=== PATIENT | male | born 1955 | race Caucasian/White ===

== ENCOUNTER 2023-10-27 03:43 | Inpatient (IN) | payer OTHER, SELFPAY ==
[2023-10-26 23:10] VITALS: BP 163/72
[2023-10-26 23:42] LABS: % Basophils 0.4 % (0-2); % Eosinophils 1.4 % (0-6); % Immature Granulocytes 0.3 % (0-0.5); % Lymphocytes 12.1 % (20.5-51.1); % Monocytes 11.8 % (1.7-9.3); Absolute Eosinophils 0.1 10^3/uL (0-0.7); Absolute Lymphocytes 0.8 10^3/uL (1.2-3.4); Absolute Monocytes 0.8 10^3/uL (0.1-0.6); Absolute Neutrophils 5.1 10^3/uL (1.4-6.5); Hematocrit 34.7 % (39.0-52.0); Hemoglobin 12.1 g/dL (13.0-18.0); Mean Corp Hgb Conc. 34.9 g/dL (33.0-37.0); Mean Corpuscular Hgb 28.9 pg (27.0-31.0); Mean Platelet Volume 12.5 fL (7.4-10.4); Nucleated Red Blood Cells % 0 % (-); Platelet Count 109 10^3/uL (130-400); Red Blood Cell Count 4.18 10^6/uL (4.70-6.10); Red Cell Dist. Width 15.2 % (11.5-14.5); White Blood Cell Count 6.9 10^3/uL (4.8-10.8)
[2023-10-26 23:57] LABS: ALT (SGPT) 37 U/L (0-50); AST (SGOT) 47 U/L (17-59); Albumin 3.1 g/dl (3.5-5.0); Alkaline Phosphatase 64 U/L (38-126); Blood Urea Nitrogen 16 mg/dl (9-20); Calcium 8.2 mg/dl (8.4-10.2); Carbon Dioxide 22 mmol/L (22-30); Chloride 102 mmol/L (98-107); Estimated Creatinine Clearance 119 ml/min; Glucose 249 mg/dl (70-99); Potassium 3.9 mmol/L (3.5-5.1); Sodium 129 mmol/L (135-145); Total Bilirubin 1.3 mg/dl (0.2-1.3); Total Protein 6.7 g/dl (6.3-8.2); eGFR > 60.00
[2023-10-27] VITALS (17 sets, daily range): BP systolic 75–149; BP diastolic 62–81; BMI 24.7
[2023-10-27 01:03] LABS: Urine Albumin Negative (Neg - Trace); Urine Bilirubin Negative (Negative); Urine Character Clear (Clear); Urine Color Yellow; Urine Glucose 3+ (Negative); Urine Ketone Negative (Negative); Urine Leukocyte Negative (Negative); Urine Nitrite Negative (Negative); Urine Occult Blood Negative (Negative); Urine Specific Gravity 1.015 (<1.030); Urine Urobilinogen 2+ (Neg - 1+)
--- NOTE | 2023-10-27 01:03 | ED.GENMED ---
History of Present Illness
General
Chief Complaint: Abnormal Lab Value
Source: patient and spouse
Time Seen by Provider: 10/26/23 23:50
Travel History
Have you had any contact with someone who has COVID-19?: No
Do you have any symptoms of coronavirus? Fever > 100 degrees, chills, cough, shortness of breath, sore throat, loss of taste or smell, muscle aches, or headache?: No
History of Present Illness
History of Present Illness:
67-year-old male presents emergency room based upon the advice of his braker passenger train. Patient has Mckeon cirrhosis. He has a paracentesis performed about every 2 weeks at [facility] where his epic cadence specialists is. He did have this procedure done
today and he received a phone call that the ascitic fluid had an elevated white blood cell count and that he should go to the closest return. Patient has been experiencing some mild abdominal discomfort which she associated with the need for
paracentesis. No fever. Otherwise has been feeling well. Patient states he removed 4 L of fluid. He did not get albumin because they removed less than 5 L.
Past History
Past History
ED Past Medical History: GERD, HTN, Hypercholesterolemia and Other (Cirrhosis of the liver)
ED Past Surgical History: Orthopedic and Other (Hernia repair)
Social History
Personal:
Living: with family
Employment: Employed
Family History
Family History: Other
Phy Exam
Physical Exam
Physical Exam:
General: Awake, Alert, Oriented X3. No acute distress.
Vitals: unremarkable
Head: Atraumatic
Eyes: Pupils equal, EOMI
Throat: Airway intact, no exudates
Neck: Trachea midline
Lungs: Clear and equal b/l
Heart: Regular rate, no murmurs
Abd: Soft, no significant tenderness to palpation, No pulsatile mass
Neuro: Nonfocal
Skin: Warm, dry, no rash
Extremities: pulses equal b/l, no edema
Course
Orders/Labs/Results
Orders:
Orders
10/26/23 23:22
Electrocardiogram (*1) Urgent
Reason for Study: Other
Other Reason for Exam: Possible Sepsis
Cardiac Monitoring- Treatment ONCE
Urinalysis Reflex To Culture Urgent
Date Specimen was Collected: 10/26/23
Time Specimen was Collected: 23:23
O2 Therapy [RESP] Urgent
Titrate/Wean O2 to maintain O2 sat greater than (%): 93
Special Instructions: TO MAINTAIN CONTINUOUS O2 SATS > OR = 93%
Pulse Ox/cont/shift [RESP] Urgent
Quantity: 1
Special Instructions: CONTINUOUS
10/26/23 23:23
EKG- Treatment ONCE
10/26/23 23:30
Lactic Acid Q4H
Comment: ON ICE, CANCEL 2ND ORDER IF FIRST LACTIC ACID LEVEL <2
10/26/23 23:35
Complete Blood Count/With Diff Urgent
Comprehensive Metabolic Panel Urgent
Blood Culture Q30M
JANIE Source: Blood/Venous
Specimen Description:
Comment: FROM 2 SEPARATE SITES
10/27/23 00:43
Blood Culture Q30M
JANIE Source: Blood/Venous
Specimen Description:
Comment: FROM 2 SEPARATE SITES
10/27/23 00:48
Prothrombin Time Urgent
10/27/23 01:02
CefTRIAXone [Rocephin] 2,000 mg IV NOW STA
10/27/23 03:30
Lactic Acid Q4H
Comment: ON ICE, CANCEL 2ND ORDER IF FIRST LACTIC ACID LEVEL <2
Abnormal Lab Results
10/26/23
23:35
RBC 4.18 L 10^6/uL
(4.70-6.10)
Hgb 12.1 L g/dL
(13.0-18.0)
Hct 34.7 L %
(39.0-52.0)
RDW 15.2 H %
(11.5-14.5)
Plt Count 109 L 10^3/uL
(130-400)
MPV 12.5 H fL
(7.4-10.4)
Absolute Lymphs (auto) 0.8 L 10^3/uL
(1.2-3.4)
Absolute Monos (auto) 0.8 H 10^3/uL
(0.1-0.6)
Lymphocytes % 12.1 L %
(20.5-51.1)
Monocytes % 11.8 H %
(1.7-9.3)
Sodium 129 L mmol/L
(135-145)
Creatinine 0.5 L mg/dL
(0.7-1.3)
Glucose 249 H mg/dl
(70-99)
Calcium 8.2 L mg/dl
(8.4-10.2)
Albumin 3.1 L g/dl
(3.5-5.0)
10/26/23 23:35
10/26/23 23:35
Vital Signs
Initial and Last Documented VS:
Initial Vital Signs
Temp Pulse Resp BP Pulse Ox
98.2 F 82 20 163/72 97
10/26/23 23:10 10/26/23 23:10 10/26/23 23:10 10/26/23 23:10 10/26/23 23:10
Last Documented Vital Signs
Temp Pulse Resp BP Pulse Ox
98.1 F 71 20 128/64 98
10/27/23 01:00 10/27/23 01:00 10/27/23 01:00 10/27/23 01:00 10/27/23 01:00
MDM/Problems Addressed
Differential Diagnosis Includes:
SBP
MDM/Problems Addressed:
Patient sent to the emergency room because of abnormal ascitic fluid results. I was able to see the results on the patient's portal and white count is 826. No chemistry results are available. Gram stain and culture were pending. Patient is
afebrile. His abdominal exam is benign. We will begin treatment for suspected spontaneous bacterial peritonitis with 2 g of Rocephin. I did discuss the patient's presentation with GI on-call.
Chronic conditions affecting care: Other (Cirrhosis)
*Pulse Oximetry
Patient hypoxic: no
*EKG
Interpreted by ED Provider?: Yes
Interpretation: normal
Heart Rate: 67
Rate: normal
Rhythm: sinus
[place]: normal axis
Interval: normal interval
Ischemia: no ischemia
*Supervisor Road Administrator Interpretation
Rate: normal
Interpretation: normal
Rhythm: sinus
*Critical Care Note
Total Time (30-74mins, 75-104mins- exclusive of procedures): Not Applicable
ED Attending Note
-
Portions of this chart may have been created with voice recognition software.� Occasional wrong word or��sound alike� substitutions may have occurred due to the inherent limitations of voice recognition software.
Discharge Plan
Departure
Patient Disposition: Admit
Date of Disposition: 10/27/23
Time of Disposition: 01:04
Admit to: Med/Surg
Presentation/result/management discussed w/ accepting MD/DO: Hospitalist
Condition: Fair
Discharge Problem:
Spontaneous bacterial peritonitis, Cirrhosis of liver
Prescriptions:
No Action
lansoprazole 30 MG capsule,delayed release(DR/EC)
30 mg PO DAILY
furosemide 40 mg tablet
40 mg PO DAILY
atorvastatin 40 mg tablet
40 mg PO QPM
spironolactone 100 mg tablet
150 mg PO DAILY
dapagliflozin propanediol [Farxiga] 10 mg tablet
10 mg PO DAILY
Referrals:
Camille Cheng MD [Family Provider] -
Interventions
Interventions:
*Risk Screen - Suicide Last Done: 10/26/23 23:10
*General Assessment Last Done: 10/26/23 23:10
*Neglect/Abuse Screening Last Done: 10/26/23 23:10
ED- Fall Risk Assessment Last Done: 10/26/23 23:10
*ED COVID-19 Vaccine History Last Done: 10/26/23 23:10
UE-Orbsaq-Iefbpygmbg Assessment Last Done: 10/27/23 00:55
[2023-10-27 01:21] LABS: INR 1.31; PT 16.4 Sec (11.4-14.6)
[2023-10-27] MEDS: ROCEPHIN 2000 MG IV ×2 (01:24→23:31)
[2023-10-27 01:32] LABS: Lactic Acid 1.2 mmol/L (0.7-2.0)
--- NOTE | 2023-10-27 02:35 | HPS.HSE ---
Family Physician
-
Family Physician: Camille Cheng
Chief Complaint
-
abnormal ascites fluid analysis at [facility]
History of Present Illness
8M HX MENDEZ cirrhosis, chronic thrombocytopenia, mild hypoalbuminemia, borderling coagulopathy sent in by GI
Recent paracentesis performed about every 2 weeks at [place] where his dietician is.
Repeat abdominal parcenteiss today and removed 4 L of fluid today. No albumin because removed less than 5 L.
OP GI noted ascitic fluid had an elevated white blood cell count and that he was advised to got to ER.
ROS
Reports some mild abdominal discomfort which she associated with the need for paracentesis.
No fever.
Medical History
Past Medical History
Past Medical History: Reports Other
Additional Past Medical History:
GERD, HTN, Hypercholesterolemia and Other (Cirrhosis of the liver)
Past Surgical History: Reports Other (Hernia repair))
Social History
Tobacco: Non-smoker
Alcohol: None
Personal:
Living: With Family
Family History
Family History: Not pertinent
Allergies / Home Medications
Allergies reflects when Allergies were last updated in [facility].
Home Medications with original date entered in [facility]
Allergy/Medication List:
Allergies
Allergy/AdvReac Type Severity Reaction Status Date / Time
NKA - No Known Allergies Allergy NKA Uncoded 10/26/23 23:19
Home Medications
lansoprazole 30 mg capsule,delayed release 30 mg PO DAILY 11/27/15
atorvastatin 40 mg tablet 40 mg PO QPM 09/09/23
dapagliflozin propanediol 10 mg tablet (Farxiga) 10 mg PO DAILY 09/09/23
furosemide 40 mg tablet 40 mg PO DAILY 09/09/23
spironolactone 100 mg tablet 150 mg PO DAILY 09/09/23
Review of Systems
-
Constitutional: Reports No Symptoms
EENT: Reports No Symptoms
Respiratory: Reports No Symptoms
Cardiac: Reports No Symptoms
Abdomen/GI: Reports See HPI
: Reports No Symptoms
Musculoskeletal: Reports No Symptoms
Skin: Reports No Symptoms
Neurological: Reports No Symptoms
Endocrine: Reports No Symptoms
Hematologic/Lymphatic: Reports No Symptoms
Psych: Reports No Symptoms
Physical Exam
Vital Signs
Vital Signs
Temp Pulse Resp BP Pulse Ox
98.1 F 71 20 128/64 98
10/27/23 01:00 10/27/23 01:00 10/27/23 01:00 10/27/23 01:00 10/27/23 01:00
Physical Exam
General: Other (see below )
Laboratory Results
-
10/26/23 23:35
10/26/23 23:35
Laboratory Results
PT 16.4 Sec (11.4-14.6) H 10/27/23 00:48
INR 1.31 10/27/23 00:48
Lactic Acid Cancelled 10/27/23 00:48
Total Bilirubin 1.3 mg/dl (0.2-1.3) 10/26/23 23:35
AST 47 U/L (17-59) 10/26/23 23:35
ALT 37 U/L (0-50) 10/26/23 23:35
Alkaline Phosphatase 64 U/L (38-126) 10/26/23 23:35
Data Reviewed
-
Lab Data: Labs Reviewed by me
Impression/Plan
-
Reviewed VS: Afebrile and unremarkable VS
PE
Gen: NAD , not toxic looking
HEENT: anicteric
Neck: supple
Lungs: CTA
Cor: RRR S1 S2
Abdomen: Soft, no significant tenderness to palpation,
HEAD CHARRER: AAO3 , No asterix, NFND
MS: no edema
Psych: appropriate
Data
nl WCC
Hgb 12.1
Plt 110 - baseline is 70 - 120s
INR 1.31
Albumin 3.1
Na 129 BG 250 - corrected Na 131
nl TB
nl transaminase
NEG UA
EKG
SINUS RHYTHM WITH PREMATURE ATRIAL COMPLEXES
ST and T WAVE ABNORMALITY, CONSIDER ANTERIOR ISCHEMIA
ABNORMAL ECG
WHEN COMPARED WITH ECG OF 09-SEP-2023 10:14,
NONSPECIFIC T WAVE ABNORMALITY NOW EVIDENT IN ANTERIOR LEADS
QT HAS SHORTENED
ASSESSMENT & PLAN
Hemodynamically stable
Reported elevated WCC in [facility] at [facility] - Ascites fluid analysis is not in [facility]
ER attd was able to see the results on the patient's portal and white count is 826.
No chemistry results are available.
Gram stain and culture were pending
Eval for Spontaneous bacterial peritonitis, Cirrhosis of liver
Afebrile. Abdominal exam is benign.
HX MENDEZ cirrhosis mild synthetic dysfunction, chr thrombocytopenia
- cont all OP Meds: Lasix and Aldactone
- BCx sent
- agree with empiric IV CFTZ 2 gm daily
- obtain records from [facility]
- GI consulted per ER attd
HLD on Stain - cont.
DVT Px: SCD
Code: Full code
IP MS
[2023-10-27 07:53] LABS: Hematocrit 35.6 % (39.0-52.0); Hemoglobin 11.9 g/dL (13.0-18.0); Mean Corp Hgb Conc. 33.4 g/dL (33.0-37.0); Mean Corpuscular Hgb 28.7 pg (27.0-31.0); Mean Corpuscular Volume 85.8 fL (80.0-94.0); Mean Platelet Volume 11.7 fL (7.4-10.4); Platelet Count 102 10^3/uL (130-400); Red Blood Cell Count 4.15 10^6/uL (4.70-6.10); Red Cell Dist. Width 15.2 % (11.5-14.5); White Blood Cell Count 5.1 10^3/uL (4.8-10.8)
[2023-10-27 07:54] LABS: Ammonia 12 umol/L (9-30)
[2023-10-27 08:07] LABS: ALT (SGPT) 36 U/L (0-50); AST (SGOT) 45 U/L (17-59); Alkaline Phosphatase 56 U/L (38-126); Blood Urea Nitrogen 15 mg/dl (9-20); Carbon Dioxide 25 mmol/L (22-30); Chloride 103 mmol/L (98-107); Estimated Creatinine Clearance 119 ml/min; Glucose 142 mg/dl (70-99); Sodium 131 mmol/L (135-145); Total Bilirubin 1.1 mg/dl (0.2-1.3); Total Protein 6.5 g/dl (6.3-8.2); eGFR > 60.00
[2023-10-27] MEDS: ALDACTONE 150 MG PO (08:43)
[2023-10-27] MEDS: FARXIGA 10 MG PO (08:44)
[2023-10-27] MEDS: PROTONIX 40 MG PO (08:44)
[2023-10-27] MEDS: LASIX 40 MG PO (08:44)
--- NOTE | 2023-10-27 09:21 | CON.GI ---
Addendum entered and electronically signed by Cindy Wilson MD 10/27/23 16:48:
I saw and examined the patient.
The LEAD JANITOR's note was reviewed and I agree with the note.
Comment: This is a 67-year-old male with a history of decompensated Mckeon cirrhosis, recurrent ascites getting paracenteses every 2 weeks at [facility] follows up with Dr. Segovia and also Dr. Mosley at [facility], history of esophageal varices status post
banding in the past who was referred to the emergency room after tap yesterday at [facility] and was told that he has SBP and to go to the nearest emergency room. Unfortunately we do not have cell counts available from [place]. He did have a repeat tap
today that did not reveal any evidence of SBP but this was done after he received 2 g of Rocephin in the ER last night. He otherwise feels well no abdominal pain, no fevers or chills. He also has appointment next week for transplant evaluation in
[facility] and endoscopy scheduled with Dr. Segovia in 2 weeks for varices surveillance.
Assessment and plan SBP (first episode)per tap in [facility] yesterday unfortunately we do not have those results available we will try and get those results repeat From today after receiving a dose of antibiotic last night is negative for SBP for
now continue Rocephin 2 g over the weekend we could switch him to p.o. antibiotics and possible DC. Will also give albumin for SBP. And if the counts from [facility] were consistent with SBP will need secondary prophylaxis with daily/weekly
antibiotics after he finishes the course of antibiotic for the SBP.
Addendum entered and electronically signed by Alexa Spivey NP 10/27/23 11:58:
100g IV albumin ordered. Continue diuretics.
Original Note:
Consultation
-
Date/Time Consultation Requested: 10/27/23 @ 03:50
Date/Time Consultation Performed: 10/27/23 @ 09:30
Requesting Provider: STEFANIA Enrique
Performing Provider: STEFANIA Pratt; Dr. Wilson
Reason for Consultation: SBP eval, cirrhosis
Medical History
Chief Complaint / HPI
Chief Complaint: abnormal ascites fluid analysis at [facility]
History of Present Illness:
The patient is a 67-year-old male with a past medical history significant for decompensated Mckeon cirrhosis with recurrent ascites, chronic thrombocytopenia, esophageal varices with banding x 2, hypertension, GERD, hyperlipidemia, type 2 diabetes,
who presented to the emergency room as directed by his repairer screen crusher due to abnormal ascitic fluid analysis. We are being asked to evaluate for further evaluation with hx cirrhosis and +SBP. The pt is known to Dr. Segovia in our office. He has been seen
for routine management of MCKEON cirrhosis and esophageal varices monitoring. He underwent 3x EGD last year for recurrent EV with banding. He is scheduled for a repeat EGD in 2 weeks. He also follows with Dr. Mosley (hepatology at [facility]) for OLT
evaluation, and has his paracentesis with [facility] every 2 weeks. He reports he underwent paracentesis yesterday where they removed 4L which is a standard volume for him. He was later notified that his fluid cell counts were abnormal/concerning for
SBP and was advised to come to the ER. He reports he has had some mild tenderness in his abdomen above his baseline but otherwise was feeling well. He denies any confusion, lethargy, yellowing of the skin/eyes, fevers, chills, chest pain, shortness
of breath, signs of bleeding, or LE edema. He denies prior hx of SBP. He notes he is undergoing work-up and evaluation for a liver transplant next week at [facility]. He is compliant with his diuretics. He denies any alcohol use. He denies any use
of NSAIDs. Routine labs on admission essentially unrevealing aside from a sodium of 129, platelet count 109,000, and albumin 3.1. No leukocytosis or fevers. He was started on 2 g of IV Rocephin and admitted for further evaluation by GI. IR
consult was placed for paracentesis.
Past Medical History
Past Medical History: HTN, Hypercholesterolemia, NIDDM and Other (decompensated MCKEON cirrhosis with recurrent ascites, EV with banding, hiatal hernia, colon polyps)
Past Surgical History: Cholecystectomy, Orthopedic (shoulder surgery) and Other (hernia repair)
Social History
Tobacco: Non-Smoker
Alcohol: None
Drug: None
Family History
Family History: Cancer (colon CA-mother in 80's)
Allergies / Home Medications
Allergy/AdvReac Type Severity Reaction Status Date / Time
NKA - No Known Allergies Allergy NKA Uncoded 10/26/23 23:19
Medication Instructions Recorded
lansoprazole 30 mg capsule,delayed 30 mg PO DAILY 11/27/15
release
atorvastatin 40 mg tablet 40 mg PO QPM 09/09/23
dapagliflozin propanediol 10 mg 10 mg PO DAILY 09/09/23
tablet (Farxiga)
furosemide 40 mg tablet 40 mg PO DAILY 09/09/23
spironolactone 100 mg tablet 150 mg PO DAILY 09/09/23
Review of Systems
-
History Source: Patient
Constitutional: Reports No Symptoms
EENT: Reports No Symptoms
Respiratory: Reports No Symptoms
Cardiac: Reports No Symptoms
Abdomen/GI: Reports Other (Abdominal tenderness)
: Reports No Symptoms
Musculoskeletal: Reports No Symptoms
Skin: Reports No Symptoms
Neurological: Reports No Symptoms
Vital Signs
Temp Pulse Resp BP Pulse Ox
98.0 F 66 18 139/67 98
10/27/23 07:00 10/27/23 07:00 10/27/23 07:00 10/27/23 07:00 10/27/23 07:00
Physical Exam
Exam
General: Well Developed, Well Nourished and No Apparent Distress
HEENT: Normocephalic, Anicteric and Atraumatic
Respiratory: Clear
Cardiac: S1/S2 and Regular Rhythm
GI: Soft, Non Tender, Normal Bowel Sounds, Distended and Other (+ Ascites)
Musculoskeletal: No Edema
Skin: Warm and Dry
Neuro: Awake, Alert, Oriented and Other (No asterixis)
Psych: Calm
Results
WBC 5.1 10^3/uL (4.8-10.8) 10/27/23 07:15
Hgb 11.9 g/dL (13.0-18.0) L 10/27/23 07:15
Hct 35.6 % (39.0-52.0) L 10/27/23 07:15
MCV 85.8 fL (80.0-94.0) 10/27/23 07:15
Plt Count 102 10^3/uL (130-400) L 10/27/23 07:15
Absolute Neuts (auto) 5.1 10^3/uL (1.4-6.5) 10/26/23 23:35
PT 16.4 Sec (11.4-14.6) H 10/27/23 00:48
INR 1.31 10/27/23 00:48
Sodium 131 mmol/L (135-145) L 10/27/23 07:15
Potassium 4.0 mmol/L (3.5-5.1) 10/27/23 07:15
Chloride 103 mmol/L (98-107) 10/27/23 07:15
Carbon Dioxide 25 mmol/L (22-30) 10/27/23 07:15
BUN 15 mg/dl (9-20) 10/27/23 07:15
Creatinine 0.5 mg/dL (0.7-1.3) L 10/27/23 07:15
Calcium 8.0 mg/dl (8.4-10.2) L 10/27/23 07:15
Total Bilirubin 1.1 mg/dl (0.2-1.3) 10/27/23 07:15
AST 45 U/L (17-59) 10/27/23 07:15
ALT 36 U/L (0-50) 10/27/23 07:15
Alkaline Phosphatase 56 U/L (38-126) 10/27/23 07:15
Diagnostic Image Results:
03/31/2023 US abdomen: Cirrhosis with moderate ascites and splenomegaly suggesting portal hypertension
Prior GI Procedures:
EGD: 05/03/2023 Dr. Segovia: Grade I esophageal varices that flatten to insufflation. Scar tissue seen from prior banding. Portal hypertensive gastropathy. Two gastric polyps seen in fundus. Polypectomy deferred as cannot rule out gastric varices. Normal
examined duodenum. No specimens collected.
04/04/2023 Dr. Segovia: Grade III esophageal varices with no bleeding and no stigmata of recent bleeding. Completely eradicated. Banded x3. Portal hypertensive gastropathy. Two gastroesophageal junction erythematous medium sized polyps. Normal examined
duodenum. Biopsied.
03/03/23 Dr. Segovia: Grade II esophageal varices. Completely eradicated. Banded x2. Erythematous mucosa in the gastric body. Biopsied. A few gastric polyps. Resected and retrieved. Bilious gastric fluid. Fluid aspiration performed. Normal examined
duodenum. Biopsied.
Colonoscopy: 10/19/2020 Dr. Stockton: One 5 mm polyp in the cecum, removed with a cold snare. Resected and retrieved. One 7 mm polyp in the descending colon, removed with a cold snare. Resected and retrieved. One 6 mm polyp in the sigmoid colon,
removed with a cold snare. Resected and retrieved.
Assessment / Plan
-
The patient is a 67-year-old male with a past medical history significant for decompensated Mckeon cirrhosis with recurrent ascites, chronic thrombocytopenia, esophageal varices with banding x 2, hypertension, GERD, hyperlipidemia, type 2 diabetes,
who presented to the emergency room as directed by his repairer screen crusher due to abnormal ascitic fluid analysis. We are being asked to evaluate for further evaluation with hx cirrhosis and +SBP. He was sent by Dr. Mosley for abnormal fluid cell counts
consistent with SBP from his outpatient paracentesis yesterday. Currently with no signs of infection such as leukocytosis, fevers, or significant pain. He was started on 2 g of Rocephin. Undergoing outpatient liver transplant workup with
[facility].
Problem list:
-decompensated MCKEON cirrhosis, recurrent ascites follows with Dr. Mosley at [facility] for OLT evaluation, MEDL-Na 10 (6% estimated 90-day mortality rate)
-SBP+
-History of esophageal varices with banding x 2
-chronic hyponatremia
-chronic thrombocytopenia
-normocytic anemia, mild
Other pertinent medical hx:
-HTN
-GERD
-chronic thrombocytopenia
-HLD
-DM2
Recommendations:
-Per outpatient [facility] records ascitic fluid WBC 800's (per ER), sent in for SBP evaluation started on IV rocephin 2g. He does not appear toxic without any apparent HE, signs of bleeding, or fevers.
-Pending repeat paracentesis today
-Continue Rocephin 2g IV daily
-ID consult
-Daily MELD-Na labs; current MELD-Na 10
-Will give albumin 1.5g/kg today for SBP protocol, he will need 1 g/kg on day 3
-Will review with Dr. Segovia regarding his scheduled EGD in 2 weeks whether this need to be postponed or can be done.
-Low-fat low, 2 g sodium restricted diet
-Avoid hepatotoxins
-Will follow
-
-
Thank you for consultation and allowing me to participate in the patient's care. Please call the regional owner operator truck driver GI physician during the after hours with any questions or concerns.
[2023-10-27 11:13] LABS: Body Fluid Albumin < 1.0 g/dl; Body Fluid Amylase < 30 U/L; Body Fluid LDH < 90 U/L; Body Fluid Protein < 2.0 g/dl
[2023-10-27 11:36] LABS: Body Fluid Mononuclear 83.6 %; Body Fluid Polymorphonuclear 16.4 %; Body Fluid WBC 670 /CUMM
[2023-10-27 11:44] LABS: Body Fluid Second Tech EF
--- NOTE | 2023-10-27 14:02 | CM ---
Patient seen bedside, initial assessment completed. Patient reports he resides with his in a two story home with two steps to enter, patient denies DME, VN, or SNF. Patient confirms PCP Dr. Cheng, pharmacy [facility]. Patient denies any
needs at this time, CM will continue to follow for discharge planning needs.
Plan; home no needs anticipated.
--- NOTE | 2023-10-27 14:19 | W.PN.UPDATE ---
Update Note
Progress Note Update
Repeated paracentesis today to evaluate fluid analysis
PMNs were less than 250cells/mm -acknowledging elevated white count
No symptoms of abdominal tenderness
I favor this probably is not SBP, follow-up outpatient fluid analysis, cultures
Await GI recommendations
In the interim continue antibiotics, albumin for ?SBP
[2023-10-27] MEDS: FLEXBUMIN 100 IV ×4 (14:39→22:07)
[2023-10-27] MEDS: HEPARIN 5000 UNITS SC ×2 (17:07→23:30)
[2023-10-27] MEDS: LIPITOR 40 MG PO (17:07)
[2023-10-27] MEDS: STERILE WATER FOR INJECTION 20 ML IV (23:31)
[2023-10-28 06:00] VITALS: BMI 24.0
[2023-10-28 07:00] VITALS: BP 143/66
[2023-10-28 09:01] LABS: INR 1.27; PT 15.7 Sec (11.4-14.6)
[2023-10-28 09:05] LABS: Hematocrit 35.3 % (39.0-52.0); Hemoglobin 11.8 g/dL (13.0-18.0); Mean Corp Hgb Conc. 33.4 g/dL (33.0-37.0); Mean Corpuscular Hgb 29.1 pg (27.0-31.0); Mean Corpuscular Volume 86.9 fL (80.0-94.0); Mean Platelet Volume 12.4 fL (7.4-10.4); Platelet Count 100 10^3/uL (130-400); Red Blood Cell Count 4.06 10^6/uL (4.70-6.10); White Blood Cell Count 4.2 10^3/uL (4.8-10.8)
[2023-10-28 09:28] LABS: ALT (SGPT) 29 U/L (0-50); AST (SGOT) 36 U/L (17-59); Albumin 3.7 g/dl (3.5-5.0); Alkaline Phosphatase 45 U/L (38-126); Blood Urea Nitrogen 16 mg/dl (9-20); Carbon Dioxide 25 mmol/L (22-30); Chloride 98 mmol/L (98-107); Estimated Creatinine Clearance 119 ml/min; Glucose 162 mg/dl (70-99); Magnesium 2.1 mg/dl (1.6-2.3); Potassium 4.1 mmol/L (3.5-5.1); Sodium 134 mmol/L (135-145); Total Bilirubin 1.6 mg/dl (0.2-1.3); Total Protein 6.8 g/dl (6.3-8.2); eGFR > 60.00
[2023-10-28] MEDS: PROTONIX 40 MG PO (09:54)
[2023-10-28] MEDS: ALDACTONE 150 MG PO (09:54)
[2023-10-28] MEDS: FARXIGA 10 MG PO (09:55)
[2023-10-28] MEDS: LASIX 40 MG PO (09:55)
[2023-10-28] MEDS: HEPARIN 5000 UNITS SC (09:55)
--- NOTE | 2023-10-28 10:22 | W.PN.GI.CBS2 ---
Today's Communication / Plan
-
-Clinically doing really well discussed with Dr. Singer will give him his third dose of ceftriaxone today and DC on oral antibiotics with ciprofloxacin and Flagyl for another 5 days and he has an appointment on Monday at [place] with the OLT
team. I told him to discuss his results from the tap at [place] if they were consistent with SBP he will finish the full course of antibiotics and then start secondary prophylaxis with ciprofloxacin 500 mg daily but if the counts were negative and
the cultures were negative he could likely come off of the antibiotics . he will continue therapeutic paracenteses every 2 weeks at [place] as scheduled. okay to DC home later today.
Assessment / Plan
-
The patient is a 67-year-old male with a past medical history significant for decompensated Mckeon cirrhosis with recurrent ascites, chronic thrombocytopenia, esophageal varices with banding x 2, hypertension, GERD, hyperlipidemia, type 2 diabetes,
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 We are being asked to evaluate for further evaluation with hx cirrhosis and +SBP. He was sent by Dr. Mosley for abnormal fluid cell counts
consistent with SBP from his outpatient paracentesis yesterday. Currently with no signs of infection such as leukocytosis, fevers, or significant pain. He was started on 2 g of Rocephin. Undergoing outpatient liver transplant workup with
[facility].
Problem list:
-decompensated MCKEON cirrhosis, recurrent ascites follows with Dr. Mosley at [place] for OLT evaluation, MEDL-Na 10 (6% estimated 90-day mortality rate)
-SBP+
-History of esophageal varices with banding x 2
-chronic hyponatremia
-chronic thrombocytopenia
-normocytic anemia, mild
Other pertinent medical hx:
-HTN
-GERD
-chronic thrombocytopenia
-HLD
-DM2
Recommendations:
-Per outpatient [facility] records ascitic fluid WBC 800's (per ER), sent in for SBP evaluation started on IV rocephin 2g. He does not appear toxic without any apparent HE, signs of bleeding, or fevers.
-repeat paracentesis yesterday neg for SBP
-Continue Rocephin 2g IV daily day 3 today
-current MELD-Na 10
-Got albumin 1.5g/kg yesterday
-Will review with Dr. Segovia regarding his scheduled EGD in 2 weeks whether this need to be postponed or can be done.
-Low-fat low, 2 g sodium restricted diet
-Avoid hepatotoxins
-Clinically doing really well discussed with Dr. Singer will give him his third dose of ceftriaxone today and DC on oral antibiotics with ciprofloxacin and Flagyl for another 5 days and he has an appointment on Monday at [place] with the OLT
team. I told him to discuss his results from the tap at [place] if they were consistent with SBP he will finish the full course of antibiotics and then start secondary prophylaxis with ciprofloxacin 500 mg daily but if the counts were negative and
the cultures were negative he could likely come off of the antibiotics . he will continue therapeutic paracenteses every 2 weeks at [place] as scheduled. okay to DC home later today.
Subjective
Subjective
Date of Service: October 28, 2023
He feels really well no abdominal pain, no fevers or chills, WBC count is normal
Objective
Data Reviewed
Laboratory Data:
Laboratory Results
10/28/23 08:15
10/28/23 08:15
Laboratory Results
PT 15.7 Sec (11.4-14.6) H 10/28/23 08:15
INR 1.27 10/28/23 08:15
Magnesium 2.1 mg/dl (1.6-2.3) 10/28/23 08:15
Total Bilirubin 1.6 mg/dl (0.2-1.3) H 10/28/23 08:15
AST 36 U/L (17-59) 10/28/23 08:15
ALT 29 U/L (0-50) 10/28/23 08:15
Alkaline Phosphatase 45 U/L (38-126) 02/03/24 08:15
Vital Signs and I&O:
Vital Signs
Temp Pulse Resp BP Pulse Ox
98.0 F 66 18 140/65 98
10/28/23 07:00 10/28/23 09:55 10/28/23 07:00 10/28/23 09:55 10/28/23 07:00
I&O
10/27/23 10/28/23 10/29/23
06:59 06:59 06:59
Intake Total 1640 / 1640
Balance 1640 / 1640
Physical Exam
Physical Exam
Cardiology: Normal Sinus Rhythm
Pulmonary: Clear
GI: Soft, Distended (mildly distended), Non Distended and Normal Bowel Sounds
--- NOTE | 2023-10-28 10:53 | PTCARENOTE ---
Assumed care of pt from previous nurse. Pt denies pain. Pt call guy is within reach, pt rings nabil. will cont to monitor.
--- NOTE | 2023-10-28 11:51 | W.PN.HOSP.TC ---
Addendum entered and electronically signed by Axel Singer MD 10/29/23 15:07:
[id number]
Original Note:
Today's Communication/Plan
-
will treat empirically with agreed plan from GI awaiting cultures/full paracentesis analysis from [facility]
-�DC on oral antibiotics with ciprofloxacin and Flagyl for another 5 days
-F/u with OLT team at [place], if results are negative for SBP, can discontinue antibiotics.
� If paracentesis at [facility] is positive for SBP, finish full course of antibiotics and start secondary prophylaxis with ciprofloxacin 500 mg daily
� Continue therapeutic paracentesis every 2 weeks until present
Assessment / Plan
Assessment / Plan
Gen: NAD , not toxic looking
HEENT: anicteric
Neck: supple
Lungs: CTA
Cor: RRR S1 S2
Abdomen: Soft, no significant tenderness to palpation; mild distension
TRANSPORTATION AID: [email or web address] , No asterix
MS: no edema
Psych: appropriate
?SBP
-unclear if he truly has SBP
-received 1 dose abx prior to paracentesis here - doubt would change fluid analysis much
-Regardless, will treat empirically with agreed plan from GI awaiting cultures/full paracentesis analysis from [facility]
-�DC on oral antibiotics with ciprofloxacin and Flagyl for another 5 days
-F/u with OLT team at [facility], if results are negative for SBP, can discontinue antibiotics.
� If paracentesis at [facility] is positive for SBP, finish full course of antibiotics and start secondary prophylaxis with ciprofloxacin 500 mg daily
� Continue therapeutic paracentesis every 2 weeks until present
� Received albumin for SBP on day of admission
HLD on Stain - cont.
More than 30 minutes spent in discharge including
Final examination of the patient
Summarizing hospital stay
Instructions for continuing care to all relevant caregivers
Preparation of discharge records, prescriptions, and referral forms
Total time spent (35 in minutes):
Anticipated Discharge: Today
Subjective/Interval History
-
Date of Service: October 28, 2023
No acute events
Objective Data
-
Labs:
Laboratory Results
10/28/23
08:15
WBC 4.2 L
Hgb 11.8 L
Hct 35.3 L
Plt Count 100 L
PT 15.7 H
INR 1.27
Sodium 134 L
Potassium 4.1
Chloride 98
Carbon Dioxide 25
BUN 16
Creatinine 0.5 L
Glucose 162 H
Calcium 9.0
Total Bilirubin 1.6 H
AST 36
ALT 29
Alkaline Phosphatase 45
Vital Signs:
Vital Signs
Temp Pulse Resp BP Pulse Ox
98.0 F 66 18 140/65 98
10/28/23 07:00 10/28/23 09:55 10/28/23 07:00 10/28/23 09:55 10/28/23 08:15
I&O
10/27/23 10/28/23 10/29/23
06:59 06:59 06:59
Intake Total 1640 / 1640
Balance 1640 / 1640
Review of Systems
-
History Source: Patient
All other systems: Reviewed and negative
Data Reviewed
-
Labs: Labs Reviewed by me
--- NOTE | 2023-10-28 11:55 | W.DS.TRANS ---
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
-
Discharge Instructions:
Discharge Diagnosis/Procedures ?SBP
Diet Low Fat,Regular,2 Gram Sodium
Activity As tolerated
Blood Work Ascitic Fluid With the OLT team; Ascitic fluid
from [facility]
Instructions:
Stand-Alone Forms:
Changes to Home Medications: Yes
Discharge Medications:
DC Medications w/original date entered in [facility]
lansoprazole 30 mg capsule,delayed release 30 mg PO DAILY Gastrointestinal Issue 11/27/15
atorvastatin 40 mg tablet 40 mg PO QPM High Cholesterol 09/09/23
dapagliflozin propanediol 10 mg tablet (Farxiga) 10 mg PO DAILY diabetes 09/09/23
furosemide 40 mg tablet 40 mg PO DAILY Fluid Retention/Swelling 09/09/23
spironolactone 100 mg tablet 150 mg PO DAILY Fluid Retention/Swelling 09/09/23
ciprofloxacin HCl 500 mg tablet 500 mg PO Q12H 5 days #10 tabs 10/28/23
ciprofloxacin HCl 500 mg tablet 500 mg PO Q24H 30 days #30 tabs 10/28/23
metronidazole 500 mg tablet 500 mg PO Q8H 5 days #15 tabs 10/28/23
Home Medication Changes
ciprofloxacin HCl 500 mg tablet 500 mg PO Q12H 5 days #10 tabs 10/28/23
ciprofloxacin HCl 500 mg tablet 500 mg PO Q24H 30 days #30 tabs 10/28/23
metronidazole 500 mg tablet 500 mg PO Q8H 5 days #15 tabs 10/28/23
Pending Results: No
[2023-10-28] MEDS: STERILE WATER FOR INJECTION 20 ML IV (13:54)
[2023-10-28] MEDS: ROCEPHIN 2000 MG IV (13:54)
--- NOTE | 2023-10-28 15:50 | PTCARENOTE ---
Pt dc to home, iv removed. Paperwork reviewed and signed. Pt home with via family car. All belongings with pt.
== END 2023-10-28 15:52 | disposition home or self-care (01) | DRG 372 ==
LOC: 4 WEST ACU 03:43
PROVIDERS: Nurse Practitioner Family; Nurse Practitioner Gerontology; Radiology Vascular & Interventional Radiology; Student in an Organized Health Care Education/Training Program; ADMITTING PHYSICIAN Internal Medicine; ATTENDING PHYSICIAN Internal Medicine; CONSULT PHYSICIAN Internal Medicine Gastroenterology; EMERGENCY PHYSICIAN Emergency Medicine; FAMILY PHYSICIAN Family Medicine
PROC: 0W9G3ZZ Drainage of Peritoneal Cavity, Percutaneous Approach (ICD-10-PCS; 2023-10-27)
DX: K65.2 Spontaneous bacterial peritonitis (principal); E87.1 Hypo-osmolality and hyponatremia; K75.81 Nonalcoholic steatohepatitis (NASH); K74.69 Other cirrhosis of liver; E78.00 Pure hypercholesterolemia, unspecified; I10 Essential (primary) hypertension; E11.9 Type 2 diabetes mellitus without complications; K21.9 Gastro-esophageal reflux disease without esophagitis; Z79.84 Long term (current) use of oral hypoglycemic drugs
CPT/HCPCS: 49083; 80053; 81003; 82042; 82140; 82150; 83605; 83615; 83735; 84157; 85025; 85027; 85610; 87015; 87040; 87070; 87205; 89051; 93005; 96374; 99285; P9047

== ENCOUNTER → 2023-11-09 06:15 | Day surgery (SDC) | payer OTHER, SELFPAY ==
[2023-11-09 07:47] LABS: Glucose - Point of Care 154 mg/dl (70-99)
== END ==
LOC: GI 06:15
PROVIDERS: ATTENDING PHYSICIAN Internal Medicine Gastroenterology; FAMILY PHYSICIAN Family Medicine
DX: K74.60 Unspecified cirrhosis of liver (principal); I85.10 Secondary esophageal varices without bleeding; K76.6 Portal hypertension; K31.89 Other diseases of stomach and duodenum
CPT/HCPCS: 43244; 82962

== ENCOUNTER → 2023-12-12 06:24 | Day surgery (SDC) | payer OTHER, SELFPAY ==
[2023-12-12 11:09] LABS: Glucose - Point of Care 134 mg/dl (70-99)
== END ==
LOC: GI 06:24
PROVIDERS: ATTENDING PHYSICIAN Internal Medicine Gastroenterology
DX: I85.00 Esophageal varices without bleeding (principal); K74.60 Unspecified cirrhosis of liver; K76.6 Portal hypertension; K31.7 Polyp of stomach and duodenum
CPT/HCPCS: 43235; 82962

== ENCOUNTER 2024-01-03 08:59 | Emergency (ER) | payer OTHER, SELFPAY ==
[2024-01-03 09:06] VITALS: BP 154/64
--- NOTE | 2024-01-03 11:09 | ED.GENMED ---
History of Present Illness
General
Chief Complaint: Skin Problem
Source: patient and spouse
Exam Limitations: none
Time Seen by Provider: 01/03/24 10:07
Nursing documentation reviewed up to this point in time: agreed with
Travel History
Have you had any contact with someone who has COVID-19?: No
Do you have any symptoms of coronavirus? Fever > 100 degrees, chills, cough, shortness of breath, sore throat, loss of taste or smell, muscle aches, or headache?: No
History of Present Illness
History of Present Illness:
68-year-old male with Melissa history of hypertension hyperlipidemia cirrhosis that is now well-controlled with GI diabetes with hemoglobin A1c in the sixes presenting to the emergency department today with concerns of an irritation to an umbilical
hernia that is been there for many months but wore an abdominal binder 3 days ago and noticed some irritation to the outer layer of skin from the rubbing and out slightly red at that area denies any systemic symptoms nausea vomiting fevers chills or
additional concerns
Past History
Past History
ED Past Medical History: GERD, HTN, Hypercholesterolemia and Other (Cirrhosis of the liver)
ED Past Surgical History: Orthopedic and Other (Hernia repair)
Social History
Personal:
Living: with family
Employment: Employed
Family History
Family History: Other
Review of Systems
Review of Systems
Allergies reviewed?: Yes
All Other Systems: ROS reviewed and negative except as documented in HPI and ROS
Phy Exam
Physical Exam
Physical Exam:
GENERAL: Alert , in no apparent distress
EYE: pupils equal and reactive
NECK: Supple, no significant adenopathy.
ENT: o/p clr, mmm.
CARDIAC: Regular rate and rhythm .
LUNGS: Clear breath sounds bilaterally, no acute respiratory distress, no wheezes/rales/rhonchi
ABDOMEN: Umbilical hernia that is reducible there is external mild redness without significant tenderness to palpation also a superficial scab no fluctuance or induration soft, without focal tenderness, no r/g, no cvat
NEUROLOGICAL: Alert and oriented, no focal neuro deficits
SKIN: Warm and dry, skin intact.
MUSCULOSKELETAL: No edema, well perfused.
PSYCH: Normal and appropriate interaction.
Course
Orders/Labs/Results
Orders:
Orders
01/03/24 11:08
Cephalexin Monohydrate [Keflex] 500 mg PO NOW STA
Vital Signs
Initial and Last Documented VS:
Initial Vital Signs
Temp Pulse Resp BP Pulse Ox
98.1 F 74 16 154/64 99
01/03/24 09:06 01/03/24 09:06 01/03/24 09:06 01/03/24 09:06 01/03/24 09:06
Last Documented Vital Signs
Temp Pulse Resp BP Pulse Ox
98.1 F 74 16 154/64 99
01/03/24 09:06 01/03/24 09:06 01/03/24 09:06 01/03/24 09:06 01/03/24 09:06
MDM/Problems Addressed
MDM/Problems Addressed:
68-year-old male presenting to the emergency department today with concerns of irritation to the superficial aspect of the umbilical hernia that he has had for many months. He has follow-up for this as an outpatient. He recently wore an abdominal
binder which irritated the outer skin now there is some slight redness and warmth. Here there is no fluctuance or induration the umbilical hernia is not significantly tender and easily reducible. The outer layer and the superficial aspect of this
does have a small scab and some slight redness and irritation potentially consistent with a cellulitis. Patient will be started on antibiotics and given very strict return precautions also advised for close outpatient follow-up.
*Critical Care Note
Total Time (30-74mins, 75-104mins- exclusive of procedures): Not Applicable
ED Attending Note
-
Portions of this chart may have been created with voice recognition software.� Occasional wrong word or��sound alike� substitutions may have occurred due to the inherent limitations of voice recognition software.
Discharge Plan
Departure
Patient Disposition: Home (Routine Discharge)
Date of Disposition: 01/03/24
Time of Disposition: 11:12
Patient with high blood pressure during this ER visit?: No
Condition: Good
Covid-19: Not Applicable
Discharge Problem:
Cellulitis
Instructions: Cellulitis (Skin Infection), Adult (DC)
Prescriptions:
New
cephalexin 500 mg capsule
500 mg PO QID 7 Days Qty: 28 0RF
mupirocin 2 % ointment
1 applic topical BID Qty: 22 0RF
No Action
lansoprazole 30 MG capsule,delayed release(DR/EC)
30 mg PO DAILY
furosemide 40 mg tablet
40 mg PO DAILY
atorvastatin 40 mg tablet
40 mg PO QPM
spironolactone 100 mg tablet
150 mg PO DAILY
dapagliflozin propanediol [Farxiga] 10 mg tablet
10 mg PO DAILY
ciprofloxacin HCl 500 mg tablet
500 mg PO Q12H 5 Days Qty: 10 0RF
metronidazole 500 mg tablet
500 mg PO Q8H 5 Days Qty: 15 0RF
ciprofloxacin HCl 500 mg tablet
500 mg PO Q24H 30 Days Qty: 30 0RF
Rx Instructions:
Start after cipro 500mg q12h dose if [facility] paracentesis positive for SBP.
Referrals:
Camille Cheng MD [Family Provider] -
Activity Restrictions/Additional Instructions:
You came to the emergency department today with concerns of irritation to your umbilical hernia. This is potentially an early infection. Please take Keflex 4 times daily for neck 7 days and use mupirocin overlying the area and keep the area clean
and covered. Please follow closely with your outpatient doctors within 1 week for reassessment. Immediately return to the emergency department for any progression, new or concerning symptoms.
Interventions
Interventions:
*General Assessment Last Done: 01/03/24 11:37
*ED COVID-19 Vaccine History Last Done: 01/03/24 09:06
*Nursing Disposition Last Done: 01/03/24 11:37
ED-Skin Assessment Last Done: 01/03/24 11:37
Discharge Date and Time
Discharge Date/Time: 01/03/24 11:38
Print Language: MALAY
[2024-01-03] MEDS: KEFLEX 500 MG PO (11:32)
== END 2024-01-03 11:38 | disposition home or self-care (01) ==
LOC: EMR 08:59
PROVIDERS: EMERGENCY PHYSICIAN Emergency Medicine; FAMILY PHYSICIAN Family Medicine
DX: L03.311 Cellulitis of abdominal wall (principal); I10 Essential (primary) hypertension; E78.00 Pure hypercholesterolemia, unspecified; E11.9 Type 2 diabetes mellitus without complications
CPT/HCPCS: 99283

== ENCOUNTER 2024-01-17 02:52 | Inpatient (IN) | payer OTHER, MEDICARE, SELFPAY ==
[2024-01-16 21:56] VITALS: BP 171/7
[2024-01-17] VITALS (20 sets, daily range): BP systolic 114–150; BP diastolic 53–102; BMI 26.6
[2024-01-17 00:19] LABS: % Basophils 0.5 % (0-2); % Eosinophils 2.5 % (0-6); % Immature Granulocytes 0.2 % (0-0.5); % Lymphocytes 17.1 % (20.5-51.1); % Monocytes 13.2 % (1.7-9.3); % Neutrophils 66.5 % (42.2-75.2); Absolute Eosinophils 0.1 10^3/uL (0-0.7); Absolute Lymphocytes 0.8 10^3/uL (1.2-3.4); Absolute Monocytes 0.6 10^3/uL (0.1-0.6); Absolute Neutrophils 2.9 10^3/uL (1.4-6.5); Hematocrit 31.8 % (39.0-52.0); Hemoglobin 10.9 g/dL (13.0-18.0); Mean Corp Hgb Conc. 34.3 g/dL (33.0-37.0); Mean Corpuscular Hgb 27.9 pg (27.0-31.0); Mean Corpuscular Volume 81.5 fL (80.0-94.0); Nucleated Red Blood Cells % 0 % (-); Red Cell Dist. Width 15.7 % (11.5-14.5); White Blood Cell Count 4.4 10^3/uL (4.8-10.8)
[2024-01-17] MEDS: VANCOCIN 200 IV (00:25)
--- NOTE | 2024-01-17 00:26 | ED.GENMED ---
History of Present Illness
General
Chief Complaint: Skin Problem
Source: patient
Exam Limitations: none
Time Seen by Provider: 01/16/24 22:27
Nursing documentation reviewed up to this point in time: agreed with
Travel History
Have you had any contact with someone who has COVID-19?: No
Do you have any symptoms of coronavirus? Fever > 100 degrees, chills, cough, shortness of breath, sore throat, loss of taste or smell, muscle aches, or headache?: No
History of Present Illness
History of Present Illness:
Patient with history of liver cirrhosis, seen in ED 1 week ago secondary to 'umbilical sore' and started on Keflex x 1 week, presents to ED secondary to opening of the sore with drainage of ascitic fluid. Patient states that for the past 3 days,
his umbilical hernia had increased in size and hardened. Denies fever or chills. Denies nausea or vomiting. Denies abdominal pain. Patient spoke with on-call GI physician, who recommended patient to ED for evaluation. Denies previous history of
similar symptoms. Patient has been evaluated in the past by general surgeon, who told the patient that he is not a candidate for any surgical intervention, due to his underlying liver cirrhosis and need to receive continual paracentesis.
Past History
Past History
ED Past Medical History: GERD, HTN, Hypercholesterolemia and Other (Cirrhosis of the liver)
ED Past Surgical History: Orthopedic and Other (Hernia repair)
Social History
Personal:
Living: with family
Employment: Employed
Family History
Family History: Other
Review of Systems
Review of Systems
Allergies reviewed?: Yes
Constitutional: Reports no symptoms; Denies fever
Respiratory: Reports no symptoms
Cardiac: Reports no symptoms
ABD/GI: Reports no symptoms; Denies abdominal pain, nausea or vomiting
Musculoskeletal: Reports no symptoms
Skin: Reports other (umbilical hernia with drainage)
Neurological: Reports no symptoms
Phy Exam
Physical Exam
Physical Exam:
Physical Exam
General: no apparent distress, not acutely ill. afebrile
Head: nc/at. eomi
Neck: supple. no meningeal signs.
Abdomen: normal bowel sounds. not tender.
Neuro: alert and oriented. no focal neurological deficits
Skin: umbilical hernia noted with an approx 1mm ulceration noted at tip, with drainage of serous fluid
Psychiatric: well kept. interactive and cooperative
Extremities: no edema. no calf tenderness.
Course
Orders/Labs/Results
Orders:
Orders
01/16/24 23:08
Vancomycin 1 Gram/200 ml [Vancocin] 1 gram in 200 ml IV NOW
01/16/24 23:15
Blood Culture Q30M
JANIE Source: Blood/Venous
Specimen Description:
01/16/24 23:52
Basic Metabolic Panel Urgent
Complete Blood Count/With Diff Urgent
Lactic Acid Q4H
Comment: CANCEL 2nd LACTIC ACID IF 1st LACTIC ACID IS LESS THAN 2
Magnesium Urgent
Blood Culture Q30M
JANIE Source: Blood/Venous
Specimen Description:
01/17/24 02:01
Admit/Transfer Patient As Directed
Co-Sign Provider:
Level of Care: Inpatient admission
Assign to:: Medical/Surgical
Physician / Group: Mellisa
Transfer to: Medical/Surgical
Diagnosis: Abodominal Wound - suspect fistula
Patient Condition: Fair
Reason for Hospitalization: Abodominal Wound - suspect fistula
Expected length of stay greater than two midnights?: Yes
ELOS- Estimated Length of Stay in days: 2
I certify the patient meets the requirements for IP care: Yes
01/17/24 02:03
Code Status As Directed
Resuscitation Status: Full Code
01/17/24 02:18
Abdomen/Pelvis w Contrast CT [CT Abd/pelvis W Iv Cont] Stat
Comment:
Reason For Exam: umbilica hernia. r/o hernia/fistula/abscess.
01/17/24 03:30
Bisacodyl [Dulcolax] 10 mg RECTAL [id number] PRN
Dextrose 50%-Water [Dextrose 50% Syringe] 12.5 grams IV [id number] PRN
Glucagon [GlucaGen] 1 mg IM PRN PRN
Ondansetron Injectable [Zofran] 4 mg IV Q6HPRN PRN
Polyethylene Glycol Powder [Miralax] 17 grams PO DAILYPRN PRN
01/17/24 03:30
GASTROINTESTINAL CONSULT Routine
Consulting Provider: Jayro Mckeon
Was physician already notified: Yes
Reason for consult: umbilical hernia ulcer with drainage
[facility] CONSULT Routine
Consulting Provider: Laz Villegas
Was physician already notified: Yes
Reason for Consult/Procedure: paracentesis
Acknowledgement that appropriate orders are entered: Yes
Body Fluid Albumin Routine
Fluid Source: Peritoneal (Ascites)
Body Fluid Amylase Routine
Fluid Source: Peritoneal (Ascites)
Body Fluid Cell Count Routine
What is the Body Fluid: peritoneal fluid
Comment: post procedure
Fluid Culture with Gram Stain Routine
JANIE Source: Peritoneal Fluid
Specimen Description:
Comment: Post Procedure
Activity As Directed
Activity Level: As Tolerated
Bedside Glucose Monitoring As Directed
Frequency: AC&HS
Additional Instructions:: Change to q6h if pt on TPN, tube feeding or not eating
Intake/ Output As Directed
Frequency: Per unit guidelines
Vital Signs As Directed
Frequency: Per unit guidelines
Weight As Directed
Frequency: Daily
DX Deep Vein Thrombosis Video Routine
01/17/24 05:07
Basic Metabolic Panel IN AM
Complete Blood Count/With Diff IN AM
Glycohemoglobin (HgbA1c) IN AM
LFT [Ozkge-Yozi-Qrbwcmr] IN AM
Lactic Acid Q4H
Comment: CANCEL 2nd LACTIC ACID IF 1st LACTIC ACID IS LESS THAN 2
Magnesium IN AM
PTT IN AM
Prothrombin Time IN AM
01/17/24 Breakfast
NPO
Allow oral meds: Yes
Allow clear liquids: No
Body Fluid LDH IN AM
Fluid Source: Peritoneal (Ascites)
Body Fluid Protein IN AM
Fluid Source: Peritoneal (Ascites)
Gram Stain IN AM
JANIE Source: Abdomen
Specimen Description:
01/17/24 07:30
Insulin Aspart Corrective Low [Novolog Flexpen-Low Resistance] See Protocol SC AC
01/17/24 08:00
Ciprofloxacin HCl [Cipro] 500 mg PO DAILY
Dapagliflozin [Farxiga] 10 mg PO DAILY
Docusate W/Senna [Senokot-S] 1 tablet PO BIDPRN PRN
Furosemide [Lasix] 40 mg PO DAILY
Lansoprazole [Prevacid] 30 mg PO DAILY
Spironolactone [Aldactone] 150 mg PO DAILY
01/17/24 18:00
Atorvastatin [Lipitor] 40 mg PO QPM
Enoxaparin Sodium [Lovenox] 40 mg SC QPM
Abnormal Lab Results
01/16/24
23:52
WBC 4.4 L 10^3/uL
(4.8-10.8)
RBC 3.90 L 10^6/uL
(4.70-6.10)
Hgb 10.9 L g/dL
(13.0-18.0)
Hct 31.8 L %
(39.0-52.0)
RDW 15.7 H %
(11.5-14.5)
Plt Count 74 L 10^3/uL
(130-400)
MPV 12.6 H fL
(7.4-10.4)
Absolute Lymphs (auto) 0.8 L 10^3/uL
(1.2-3.4)
Lymphocytes % 17.1 L %
(20.5-51.1)
Monocytes % 13.2 H %
(1.7-9.3)
Sodium 132 L mmol/L
(135-145)
Glucose 196 H mg/dl
(70-99)
01/16/24 23:52
01/16/24 23:52
Vital Signs
Initial and Last Documented VS:
Initial Vital Signs
Temp Pulse Resp BP Pulse Ox
98.2 F 78 20 171/7 98
01/16/24 21:56 01/16/24 21:56 01/16/24 21:56 01/16/24 21:56 01/16/24 21:56
Last Documented Vital Signs
Temp Pulse Resp BP Pulse Ox
98.4 F 72 18 140/102 96
01/17/24 05:19 01/17/24 09:52 01/17/24 08:00 01/17/24 09:52 01/17/24 08:00
MDM/Problems Addressed
MDM/Problems Addressed:
History and exam concerning for nonhealing ulcer, now with significant ascitic fluid drainage. There is also surrounding erythema, concerning for development of cellulitis.
Discussed with (GI) - recommends starting abx tonight and consulting [facility] tomorrow for paracentesis.
*Critical Care Note
Total Time (30-74mins, 75-104mins- exclusive of procedures): Not Applicable
ED Attending Note
-
Portions of this chart may have been created with voice recognition software.� Occasional wrong word or��sound alike� substitutions may have occurred due to the inherent limitations of voice recognition software.
Discharge Plan
Departure
Patient Disposition: Admit
Date of Disposition: 01/17/24
Time of Disposition: 00:34
Presentation/result/management discussed w/ accepting MD/DO: Hospitalist
Discharge Problem:
Non-healing wound, Cirrhosis of liver
Interventions
Interventions:
*Risk Screen - Suicide Last Done: 01/16/24 21:56
*General Assessment Last Done: 01/17/24 00:09
*Neglect/Abuse Screening Last Done: 01/17/24 00:09
ED- Fall Risk Assessment Last Done: 01/17/24 00:09
*ED COVID-19 Vaccine History Last Done: 01/17/24 00:09
ED-Skin Assessment Last Done: 01/17/24 00:09
[2024-01-17 00:36] LABS: Lactic Acid 1.3 mmol/L (0.7-2.0)
[2024-01-17 00:41] LABS: Blood Urea Nitrogen 19 mg/dl (9-20); Calcium 8.8 mg/dl (8.4-10.2); Carbon Dioxide 23 mmol/L (22-30); Chloride 105 mmol/L (98-107); Estimated Creatinine Clearance 88 ml/min; Glucose 196 mg/dl (70-99); Magnesium 1.8 mg/dl (1.6-2.3); Potassium 4.5 mmol/L (3.5-5.1); Sodium 132 mmol/L (135-145); eGFR > 60.00
[2024-01-17 00:55] LABS: Mean Platelet Volume 12.6 fL (7.4-10.4); Platelet Count 74 10^3/uL (130-400)
--- NOTE | 2024-01-17 02:12 | HPS.HSE ---
Family Physician
-
Family Physician: Camille Cheng
Chief Complaint
-
Drainage from Umbilical hernia, large volume x 1 day
History of Present Illness
Very pleasant 68yo M with PMH MCKEON Cirrhosis, Hx SBP, Umbilical Hernia, Hyponatremia, HTN/HLD presents to ER with large volume clear yellow drainage from an umbilical hernia wound x 1 day. Pt was seen in ER 01/02 and diagnosed with cellulitis
overlying am umbilical hernia wound. He was placed on 7 day course of abx and topical ointment which he completed with improvement. He states today he was cleaning the wound and thinks he may have rubbed it too hard. Has since drained what he
estimates to me about 1L of ascitic yellow fluid. Denies any pain. Mild erythema. No pain. No purulence, fever, chills noted. Pt follows with Dr. Portia Kurtz who had told him in past that repairing his umbilical hernia was an option given his
recurrent ascites. He denies recurrence of this in the past. Last paracentesis was 16 days ago. Also following with Dr. Mosley through [facility] for eventual TIPS. Denies F/C, Dizziness/LH, CP, Palps, Wheezing, Cough, SOB, Abd pain, N/V/D/C, Leg
swelling.
ER course: Pt presents V.S.S. Na 132, BUN/Cr 19/0.8, BG 196, LA 1.3, WBC 4.4K, Hgb 10.9 g/dL, MCV 82, PLT 74K. CT a/p with contrast ordered and pending. S/P IV vancomycin in ER. GI recommending IR consult for para.
Medical History
Past Medical History
Past Medical History: Reports Other
Additional Past Medical History:
MCKEON Cirrhosis, Hx SBP, Hx Umbilical Hernia, DM2, HTN/HLD, Hyponatremia, Hx SBP, GERD
Past Surgical History: Reports Other (Paracenteses, Cholecystectomy (2016), Left Shoulder Sx.)
Social History
Tobacco: Non-smoker
Alcohol: Former (previous social drinker)
Drug: None
Family History
Family History: Other (Mother with colon ca. Father with no known hx. )
Allergies / Home Medications
Allergies reflects when Allergies were last updated in [employer].
Home Medications with original date entered in [employer]
Allergy/Medication List:
Allergies
Allergy/AdvReac Type Severity Reaction Status Date / Time
NKA - No Known Allergies Allergy NKA Uncoded 01/16/24 22:00
Home Medications
lansoprazole 30 mg capsule,delayed release 30 mg PO DAILY Gastrointestinal Issue 11/27/15
atorvastatin 40 mg tablet 40 mg PO QPM High Cholesterol 09/09/23
dapagliflozin propanediol 10 mg tablet (Farxiga) 10 mg PO DAILY diabetes 09/09/23
furosemide 40 mg tablet 40 mg PO DAILY Fluid Retention/Swelling 09/09/23
ciprofloxacin HCl 500 mg tablet 500 mg PO DAILY 01/16/24
spironolactone 50 mg tablet 150 mg PO DAILY 01/16/24
Review of Systems
-
A 12 point ROS was completed and negative except as noted: Yes
Physical Exam
Vital Signs
Vital Signs
Temp Pulse Resp BP Pulse Ox
98.2 F 71 20 139/56 98
01/16/24 21:56 01/17/24 01:31 01/17/24 01:31 01/17/24 01:31 01/17/24 01:31
Physical Exam
General: Well Developed, Well Nourished and No Apparent Distress
HEENT: NormoCephalic, Moist mucous membranes and Atraumatic
Respiratory: Clear; No Wheezes, Rales or Rhonchi
Cardiac: S1/S2 and Regular Rhythm; No Murmur or Rub
GI: Soft, Non Tender, Normal Bowel Sounds and Other (Mild distention. Umbilical Hernia with small ulceration and leakage of ascitic yellow fluid. No purulence. No TTP. )
Rectal: Deferred by Provider
Musculoskeletal: No Clubbing, No Cyanosis and No Edema
Skin: No Rash
Neuro: Awake, Alert, AO x 3, No Motor Deficits and Nonfocal/grossly intact
Hematologic/Lymphatic: No Lymphadenopathy
Psych: Calm
Laboratory Results
-
01/16/24 23:52
01/16/24 23:52
Laboratory Results
Lactic Acid 1.3 mmol/L (0.7-2.0) 01/16/24 23:52
Data Reviewed
-
Medical Tests (Nuc Med, Echo, EKG etc): Image Personally Visualized and interpreted
Lab Data: Labs Reviewed by me
Old Records: Reviewed
Impression/Plan
-
Umbilical Herniation / Wound / Ascites
- Pt recently treated for overlying cellulitis on 01/02 completing abx, large ascitic drainage following cleaning of wound on 01/15
- Afebrile, WBC 4.4K.
- WIll obtain CT a/p with contrast to assess for abscess vs more likely intraperitoneal communication ie fistula
- Case D/W. recommending IR consult for paracentesis and continuation of abx. Fluid studies ordered. Contnue IV vancomycin per pharm protocol. Continue home cipro (SBP prophylaxis dose)
- To consider surgical consultation pending CT results
Hyponatremia
- Na 132. Relatively chronic in nature and wnl correcting for pseudohyponatremia. Follow with continued volume management on lasix/aldactone
Mckeon Cirrhosis
- Hx noted. Following with Dr. Baeza and Dr. Mosley for TIPS
- Continue home lasix/aldactone regimen
Hx SBP
- Continue home prophylactic cipro dose.
DM2 - BG 200s on admission. Continue home farxiga. SSI/accuchecks. Diabetic diet when advanced.
HTN/HLD - Continue home lasix/aldactone/statin.
GERD - Continue home PPI
Anemia/Thrombocytopenia - Hgb 10.9 g/dL. MCV 82. PLT 74K. Relatively chronic, above tranfusion thresholds. Follow for stability.
Diet: NPO pending paracentesis
DVT Ppx: Lovenox
Code Status: Full Code
[2024-01-17 05:26] LABS: % Basophils 0.7 % (0-2); % Eosinophils 2.6 % (0-6); % Immature Granulocytes 0.2 % (0-0.5); % Lymphocytes 16.3 % (20.5-51.1); % Monocytes 10.8 % (1.7-9.3); % Neutrophils 69.4 % (42.2-75.2); Absolute Eosinophils 0.1 10^3/uL (0-0.7); Absolute Lymphocytes 0.8 10^3/uL (1.2-3.4); Absolute Monocytes 0.5 10^3/uL (0.1-0.6); Absolute Neutrophils 3.2 10^3/uL (1.4-6.5); Hematocrit 31.8 % (39.0-52.0); Hemoglobin 10.9 g/dL (13.0-18.0); Mean Corp Hgb Conc. 34.3 g/dL (33.0-37.0); Mean Corpuscular Hgb 28.2 pg (27.0-31.0); Mean Corpuscular Volume 82.2 fL (80.0-94.0); Mean Platelet Volume 11.8 fL (7.4-10.4); Nucleated Red Blood Cells % 0 % (-); Platelet Count 73 10^3/uL (130-400); Red Blood Cell Count 3.87 10^6/uL (4.70-6.10); Red Cell Dist. Width 15.8 % (11.5-14.5); White Blood Cell Count 4.6 10^3/uL (4.8-10.8)
[2024-01-17 05:43] LABS: APTT 31.5 Sec (23.4-35.0); INR 1.32; PT 16.2 Sec (11.4-14.6)
[2024-01-17 05:51] LABS: ALT (SGPT) 49 U/L (0-50); AST (SGOT) 47 U/L (17-59); Albumin 3.2 g/dl (3.5-5.0); Alkaline Phosphatase 68 U/L (38-126); Blood Urea Nitrogen 17 mg/dl (9-20); Calcium 8.7 mg/dl (8.4-10.2); Carbon Dioxide 22 mmol/L (22-30); Chloride 106 mmol/L (98-107); Direct Bilirubin 0.3 mg/dl (0.0-0.4); Estimated Creatinine Clearance 100 ml/min; Glucose 189 mg/dl (70-99); Magnesium 1.8 mg/dl (1.6-2.3); Potassium 4.3 mmol/L (3.5-5.1); Sodium 131 mmol/L (135-145); Total Bilirubin 0.9 mg/dl (0.2-1.3); Total Protein 6.8 g/dl (6.3-8.2); eGFR > 60.00
[2024-01-17 05:52] LABS: Lactic Acid 1.1 mmol/L (0.7-2.0)
--- NOTE | 2024-01-17 08:41 | CON.GI ---
Addendum entered and electronically signed by Jayro Mckeon MD 01/17/24 11:34:
I saw and examined the patient.
The PA's note was reviewed and I agree with the note.
Comment:
The patient is a 68-year-old male with h/o MCKEON cirrhosis decompensated with recurrent ascites requiring LVP q2 weeks ([place]) and esophageal varices s/p EVL, SBP on cipro/Rifaximin prophylaxis, HTN, GERD, hyperlipidemia, DM, and umbilical hernia
who p/w drainage from his umbilical hernia wound. He recently p/w ulcer/sore on the umbilical hernia site 10 days ago, treated with abx. Had spontaneous rupture of this wound last night with drainage of ascitic fluid and was advised to come to ER.
Impression / Rec:
1. Rupture of umbilical hernia with drainage of ascitic fluid - likely had spontaneous rupture of umbilical hernia wound from tense ascites. He drained significant amount of ascitic fluid. Denies abdo pain, fever, or altered mental status. Plan
was to perform LVP but may not have adequate ascitic fluid left for paracentesis. Spoke with hepatology at [facility], pt was planned for TIPS in 01/2024 which they will expedite and thus will accept pt for transfer. Will administer prophylactic
ceftriaxone and albumin.
Original Note:
Consultation
-
Date/Time Consultation Requested: 01/17/24 @ 03:30
Date/Time Consultation Performed: 01/17/24 @08:45
Requesting Provider: Dr. Pak
Performing Provider: STEFANIA Pratt
Reason for Consultation: umbilical hernia ulcer with drainage
Medical History
Chief Complaint / HPI
Chief Complaint: drainage from umbilical hernia
History of Present Illness:
The patient is a 68-year-old male with a past medical history significant for decompensated MCKEON cirrhosis with recurrent ascites undergoing paracentesis every 2 weeks as needed on diuretics, chronic thrombocytopenia, esophageal varices with
banding, hypertension, GERD, hyperlipidemia, DM2, umbilical hernia, who presented to the emergency room for evaluation of drainage from his umbilical hernia, which we are being asked to evaluate for with history of decompensated liver cirrhosis.
Upon review of prior records, the pt is known to Dr. Segovia in our office. He has been seen locally with Dr. Segovia for routine management of MCKEON cirrhosis and esophageal varices monitoring. He underwent 3x EGD last year for recurrent EV with banding with
most recent endoscopy in November, which showed 1 column of grade 1 varices in the lower third of the esophagus and moderate portal hypertensive gastropathy. At that time he was advised to repeat his endoscopy in 6 months for follow-up on his
esophageal varices. He also follows with Dr. Mosley (hepatology at [facility]) for OLT evaluation which was deferred due to his low MELD score. He has his paracentesis with [facility] every 2 weeks or so for symptom management of abdominal distention.
He was last seen in the hospital in October here, sent by his ecosystem ecology professor Dr. Mosley from [facility] due to abnormal peritoneal fluid cell counts which showed SBP. He was placed on antibiotics at that time and subsequently discharged with SBP
prophylaxis of ciprofloxacin 500 mg daily. The patient notes after his discharge at that time he was evaluated by Dr. Mosley for outpatient liver transplant, which was deferred but he was scheduled for a TIPS procedure which is upcoming at the end of
January at [facility]. He notes that he has had a chronic umbilical hernia which usually is easily reducible, previously evaluated by general surgery but deferred surgical intervention. He notes about 10 days ago he developed a sore on the hernia site
due to a band that he was wearing to compress the hernia. He was evaluated in the ER on 01/02 due to this sore in which he was sent home with Keflex for 7-day course along with topical mupirocin ointment. He notes that his abdomen was getting more
distended along with the protrusion of the hernia more so than usual over the last week. Last night he was cleaning the hernia wound site which then opened up and large amounts of ascitic appearing fluid drained out of the site saturating 2 large
towels. He notes he continued with drainage and called our office who referred him to the emergency room. He notes that he was due for paracentesis today at [facility]. He denies any significant abdominal pain, nausea, vomiting, fevers, chills,
constipation, diarrhea, melena, hematochezia, or hematemesis. He denies any chest pain, shortness of breath, confusion, lethargy, headaches, or dizziness. He notes he is compliant with his diuretics which includes furosemide 40 mg daily and
spironolactone 150 mg daily. He notes that he did message Dr. Mosley on his patient portal who advised him to suggest transfer to [facility] for further evaluation. He denies any use of blood thinners or NSAIDs. He denies any use of alcohol. He is
otherwise resting comfortably in no acute distress. An ostomy bag was placed over the hernia site and is draining yellow clear ascitic type fluid. Routine labs on admission showed a WBC 4.4, hemoglobin 10.9, platelets 74,000, INR 1.32, sodium 132,
potassium 4.5, BUN 19, creatinine 0.8, lactic acid 1.3, total bilirubin 0.9, direct bilirubin 0.3, AST 47, ALT 49, alk phos 68, albumin 3.2. He underwent a CT of the abdomen and pelvis with IV contrast which showed fluid in the soft tissue of the
anterior abdominal wall at the site of a known wound which extends to the peritoneum, along with a lobular contour of the liver consistent with known history of cirrhosis with increased ascites. He was made n.p.o. and admitted for further
evaluation by GI pending paracentesis. Calculated MELD 3.0 score is 14, MELD sodium score 10. He is hemodynamically stable with out fevers.
Past Medical History
Past Medical History: GERD, HTN, Hypercholesterolemia, NIDDM and Other (Decompensated Mckeon cirrhosis with recurrent ascites (following with Dr. Mosley at [facility] hepatology), history of esophageal varices with banding, chronic hyponatremia, chronic
thrombocytopenia, normocytic anemia, history of SBP, umbilical hernia)
Past Surgical History: Cholecystectomy, Orthopedic (Shoulder surgery) and Other (Hernia repair)
Social History
Tobacco: Non-Smoker
Alcohol: None
Drug: None
Personal:
Living: With Family
Family History
Family History: Cancer (Mother with colon cancer in her 80s)
Allergies / Home Medications
Allergy/AdvReac Type Severity Reaction Status Date / Time
NKA - No Known Allergies Allergy NKA Uncoded 01/16/24 22:00
�Medication �Instructions �Recorded
lansoprazole 30 mg capsule,delayed 30 mg PO DAILY Gastrointestinal 11/27/15
release Issue
atorvastatin 40 mg tablet 40 mg PO QPM High Cholesterol 09/09/23
dapagliflozin propanediol 10 mg 10 mg PO DAILY diabetes 09/09/23
tablet (Farxiga)
furosemide 40 mg tablet 40 mg PO DAILY Fluid 09/09/23
Retention/Swelling
ciprofloxacin HCl 500 mg tablet 500 mg PO DAILY 01/16/24
spironolactone 50 mg tablet 150 mg PO DAILY 01/16/24
Review of Systems
-
History Source: Patient
Constitutional: Reports No Symptoms
EENT: Reports No Symptoms
Respiratory: Reports No Symptoms
Cardiac: Reports No Symptoms
Abdomen/GI: Reports Other (Open sore to umbilical hernia with drainage of dark yellow clear fluid, abdominal distention)
: Reports No Symptoms
Musculoskeletal: Reports No Symptoms
Skin: Reports No Symptoms
Neurological: Reports No Symptoms
Vital Signs
Temp Pulse Resp BP Pulse Ox
98.4 F 69 18 126/60 96
01/17/24 05:19 01/17/24 08:00 01/17/24 08:00 01/17/24 08:00 01/17/24 08:00
Physical Exam
Exam
General: Well Nourished, Comfortable and Other (Chronically ill-appearing male in no acute distress)
HEENT: Normocephalic, Anicteric and Atraumatic
Respiratory: Clear
Cardiac: S1/S2 and Regular Rhythm
Breast: Deferred by me
GI: Soft, Non Tender, Normal Bowel Sounds, Distended and Other (Open sore to umbilical hernia with drainage of dark yellow clear fluid with ostomy bag in place)
Rectal: Deferred by Provider
Musculoskeletal: No Edema
Skin: Warm and Dry
Neuro: Awake, Alert and Oriented
Psych: Calm
Results
WBC 4.6 10^3/uL (4.8-10.8) L 01/17/24 05:07
Hgb 10.9 g/dL (13.0-18.0) L 01/17/24 05:07
Hct 31.8 % (39.0-52.0) L 01/17/24 05:07
MCV 82.2 fL (80.0-94.0) 01/17/24 05:07
Plt Count 73 10^3/uL (130-400) L 01/17/24 05:07
Absolute Neuts (auto) 3.2 10^3/uL (1.4-6.5) 01/17/24 05:07
PT 16.2 Sec (11.4-14.6) H 01/17/24 05:07
INR 1.32 01/17/24 05:07
APTT 31.5 Sec (23.4-35.0) 01/17/24 05:07
Sodium 131 mmol/L (135-145) L 01/17/24 05:07
Potassium 4.3 mmol/L (3.5-5.1) 01/17/24 05:07
Chloride 106 mmol/L (98-107) 01/17/24 05:07
Carbon Dioxide 22 mmol/L (22-30) 01/17/24 05:07
BUN 17 mg/dl (9-20) 01/17/24 05:07
Creatinine 0.7 mg/dL (0.7-1.3) 01/17/24 05:07
Calcium 8.7 mg/dl (8.4-10.2) 01/17/24 05:07
Total Bilirubin 0.9 mg/dl (0.2-1.3) 01/17/24 05:07
AST 47 U/L (17-59) 01/17/24 05:07
ALT 49 U/L (0-50) 01/17/24 05:07
Alkaline Phosphatase 68 U/L (38-126) 01/17/24 05:07
Diagnostic Image Results:
01/17/24 CT A/P w/IV contrast: 'There is fluid in the soft tissues of the anterior abdominal wall at the site of a known wound. This extends to the peritoneum but does not appear to extend into the peritoneum. There is a lobular contour to the liver
with ascites consistent with cirrhosis. Ascites is increased from prior study.'
Prior GI Procedures:
EGD:
11/2023, Dr. Segovia: 1 column of grade 1 varices found in the lower third of the esophagus with no red howie sign present with prior scarring from previous treatment visible. Moderate portal hypertensive gastropathy found in the gastric body. 3 sessile
small polyps on the gastric fundus. Normal examined duodenum.
10/2023, Dr. Segovia: Grade 2 varices found in the distal esophagus medium in size with placement of 3 bands with complete eradication. No bleeding during the procedure. Mild portal hypertensive gastropathy found in the stomach.
05/03/2023 Dr. Segovia: Grade I esophageal varices that flatten to insufflation. Scar tissue seen from prior banding. Portal hypertensive gastropathy. Two gastric polyps seen in fundus. Polypectomy deferred as cannot rule out gastric varices. Normal
examined duodenum. No specimens collected.
04/04/2023 Dr. Segovia: Grade III esophageal varices with no bleeding and no stigmata of recent bleeding. Completely eradicated. Banded x3. Portal hypertensive gastropathy. Two gastroesophageal junction erythematous medium sized polyps. Normal examined
duodenum. Biopsied.
03/03/23 Dr. Segovia: Grade II esophageal varices. Completely eradicated. Banded x2. Erythematous mucosa in the gastric body. Biopsied. A few gastric polyps. Resected and retrieved. Bilious gastric fluid. Fluid aspiration performed. Normal examined
duodenum. Biopsied.
Colonoscopy: 10/19/2020 Dr. Stockton: One 5 mm polyp in the cecum, removed with a cold snare. Resected and retrieved. One 7 mm polyp in the descending colon, removed with a cold snare. Resected and retrieved. One 6 mm polyp in the sigmoid colon,
removed with a cold snare. Resected and retrieved.
Assessment / Plan
-
The patient is a 68-year-old male with a past medical history significant for decompensated MCKEON cirrhosis with recurrent ascites undergoing paracentesis every 2 weeks as needed on diuretics, chronic thrombocytopenia, esophageal varices with
banding, hypertension, GERD, hyperlipidemia, DM2, umbilical hernia, who presented to the emergency room for evaluation of drainage from his umbilical hernia wound, which we are being asked to evaluate for with known history of decompensated liver
cirrhosis. Interval history as above, with recent sore on the umbilical hernia site 10 days ago on antibiotics, which opened last night with excessive drainage of yellow likely ascitic fluid. He denies any abdominal pain, fevers, or chills. He
continues with significant drainage. He is being evaluated at [facility] by Dr. Mosley, scheduled for TIPS procedure at the end of January. Currently he is hemodynamically stable with no signs of infectious etiology. He was continued on ciprofloxacin
500 mg daily for SBP prophylaxis. Pending paracentesis this morning.
Problem list:
-umbilical hernia wound with drainage, likely ascitic fluid
-History of decompensated Mckeon cirrhosis with ascites undergoing biweekly paracentesis, MELD-Na score 10, MELD 3.0 14
-History of esophageal varices with multiple EGD for banding
-History of SBP on prophylactic ciprofloxacin 500 mg daily
-chronic hyponatremia
-chronic thrombocytopenia
-normocytic anemia, mild
Other pertinent medical hx:
-HTN
-GERD
-chronic thrombocytopenia
-HLD
-DM2
Recommendations:
-With obvious open umbilical hernia wound with ongoing peritoneal fluid drainage, concerning for increased risk of infection and need for tertiary evaluation given his history as above.
---CT A/P with IV contrast showing 'fluid in the soft tissues of the anterior abdominal wall at the site of a known wound. This extends to the peritoneum but does not appear to extend into the peritoneum.'
-Discussed with Dr. Mckeon and Dr. Dimitri. Will speak to his colleague Dr. Walker who is rounding to discuss transfer to [facility] for evaluation for possible more urgent TIPS procedure and surgical evaluation
-Continue n.p.o. at this time
-Pending IR for paracentesis although may not need given he has had significant fluid output from the umbilical hernia site. Fluid studies ordered
-Will review need for prophylactic antibiotics with Dr. Walker, but will continue Cipro 500 mg daily at this time
-Continue diuretics monitoring renal function furosemide 40mg daily and spiranolactone 150mg daily (verified with pt)
-Advised nursing to place drainage bag to gravity to prevent accumulation of fluid over the umbilical hernia site
-General surgery to see, discussed with Dr. Womack in the ER.
-Monitor MELD labs daily currently low
-Further plan pending discussion with Dr. Walker at [facility]. Discussed with Dr. Singer as well.
-Will follow
Data Reviewed
-
CT Scan: Report Reviewed by me and Discussed with Physician
Old Records: Reviewed
-
-
Thank you for consultation and allowing me to participate in the patient's care. Please call the quality control technician GI physician during the after hours with any questions or concerns.
[2024-01-17 09:09] LABS: Glycohemoglobin (HgbA1c) 7.7 % (4.0-5.6)
[2024-01-17] MEDS: FARXIGA 10 MG PO (09:52)
[2024-01-17] MEDS: ALDACTONE 150 MG PO (09:52)
[2024-01-17] MEDS: CIPRO 500 MG PO (09:54)
[2024-01-17] MEDS: LASIX 40 MG PO (09:55)
[2024-01-17] MEDS: PREVACID 30 MG PO (09:55)
--- NOTE | 2024-01-17 10:50 | WOUNDNOTE ---
[facility] RN NOTE: Patient visited for management of draining abdominal fluid. MICHAEL Holt assisted with assessment. fast food shift supervisor properly applied urostomy appliance and link bag for drainage, but due to viscous material the appliance wound not drain into
bag. This inspector automatic typewriter removed urostomy appliance and applied barrier # [id number], Eakins seal, and high output ostomy pouch. Periwound skin intact, skin barrier applied to additional protection of skin. Drainage is yellow, odorless with some bloody, viscous
material. Plan is for transfer to [place]. RN given update. Will follow as needed.
--- NOTE | 2024-01-17 11:06 | WOUNDNOTE ---
[facility] RN NOTE: Patient visited for management of umbilical hernia ulcer with drainage MICHAEL Holt assisted with assessment. film processing shift supervisor properly applied urostomy appliance and link bag for drainage, but due to viscous material the appliance wound not
drain into bag. This automatic typewriter inspector removed urostomy appliance and applied barrier # [id number], Eakins seal, and high output ostomy pouch. Periwound skin intact, skin barrier applied for additional protection of skin. Drainage is yellow, odorless with some
bloody, viscous material. Plan is for transfer to [place]. RN given update. Will follow as needed.
--- NOTE | 2024-01-17 11:34 | W.PN.UPDATE ---
Update Note
Progress Note Update
billing note
--- NOTE | 2024-01-17 11:39 | W.PN.UPDATE ---
Update Note
Progress Note Update
Dr. Mckeon spoke to [place] [facility] hepatology Dr. Walker who is excepting the patient for expedited TIPS procedure and evaluation. As requested by Dr. Walker, will start on prophylactic ceftriaxone 1 g daily along with albumin 25 g every 8 hours x [address] Singer made aware and is to initiate transfer process. Dr. Godinez also updated.
--- NOTE | 2024-01-17 12:00 | CON.GS ---
Consultation
-
Date/Time Consultation Requested: 01/17/2024 11 AM
Date/Time Consultation Performed: 01/17/2024 11 AM
Requesting Provider: Emergency department
Performing Provider: Dr. Godinez
Reason for Consultation: Umbilical hernia
Medical History
-
Chief Complaint: Fluid from umbilical hernia wound.
History of Present Illness:
This is a 68-year-old male with a history of cholecystectomy, uncompensated Mendez cirrhosis with significant ascites requiring paracentesis every 2 weeks at [place], esophageal varices status post endoscopic ligation, SBP on Cipro rifaximin
prophylaxis, diabetes and known umbilical hernia and wound who presents with spontaneous drainage from said wound with over a liter of serous output. The patient denies recent fever, Chest Pain, Shortness Of Breath, Nausea, Vomiting, changes in
urinary and bowel habits, unintentional weight loss, jaundice, icterus, acolic stools.
Past Medical History
Past Medical History: Other (MENDEZ cirrhosis, diabetes)
Past Surgical History: Reviewed & Noncontributory and Cholecystectomy
Social History
Tobacco: Non-Smoker
Alcohol: None
Drug: None
Family History
Family History: Reviewed & Not Pertinent
Allergies / Home Medications
Allergy/AdvReac Type Severity Reaction Status Date / Time
NKA - No Known Allergies Allergy NKA Uncoded 01/16/24 22:00
�Medication �Instructions �Recorded �Confirmed �Type
lansoprazole 30 mg capsule,delayed 30 mg PO DAILY Gastrointestinal 11/27/15 01/16/24 History
release Issue
atorvastatin 40 mg tablet 40 mg PO QPM High Cholesterol 09/09/23 01/16/24 History
dapagliflozin propanediol 10 mg 10 mg PO DAILY diabetes 09/09/23 01/16/24 History
tablet (Farxiga)
furosemide 40 mg tablet 40 mg PO DAILY Fluid 09/09/23 01/16/24 History
Retention/Swelling
ciprofloxacin HCl 500 mg tablet 500 mg PO DAILY 01/16/24 01/16/24 History
spironolactone 50 mg tablet 150 mg PO DAILY 01/16/24 01/16/24 History
Review of Systems
-
A 10 point review of systems was completed, and was negative except as per HPI.
Physical Exam
Vital Signs
Temp Pulse Resp BP Pulse Ox
98.4 F 72 27 136/57 96
01/17/24 05:19 01/17/24 11:49 01/17/24 11:49 01/17/24 11:00 01/17/24 11:15
01/16/24 01/17/24 01/18/24
06:59 06:59 06:59
Actual Weight 79.3 kg
Body Mass Index (BMI) 26.6
Lab Results
01/17/24 05:07
01/17/24 05:07
WBC 4.6 10^3/uL (4.8-10.8) L 01/17/24 05:07
Hgb 10.9 g/dL (13.0-18.0) L 01/17/24 05:07
Hct 31.8 % (39.0-52.0) L 01/17/24 05:07
Plt Count 73 10^3/uL (130-400) L 01/17/24 05:07
Abs Immat Gran (auto) 0.0 10^3/uL (0-0.05) 01/17/24 05:07
Neutrophils % 69.4 % (42.2-75.2) 01/17/24 05:07
Physical Exam
General: Well Developed and No Apparent Distress
Respiratory: Non Labored Respirations
GI: Soft, Non Tender, Non Distended and Other (His midline umbilical wound is in stoma bag with significant amount of ascites collected in the bag. The umbilical skin is bathing in the ascitic fluid.)
Data Reviewed
-
CT Scan: Image Personally Visualized and interpreted, Report Reviewed by me, Discussed with Physician and Discussed with Patient
Labs: Labs Reviewed by me, Discussed with Physician, Discussed with Patient and Discussed with Family
Total Time Spent with Patient (in minutes): 30
Assessment / Plan
-
This is a 68-year-old male with a uncompensated Mendez cirrhosis now with ascites leaking via an umbilical wound. Meld-Na 16. General surgery consulted to help with management.
- Given his ascites an open repair particular with mesh is at high risk for both of failure and infection. The typical first step here would be to control his ascites prior to any definitive repair. He is scheduled for a TIPS procedure at
[place] which should be the first step.
- As he is currently being transferred to [place], no acute general surgery intervention warranted here though if he does end up staying would consider suturing his wound closed primarily just to avoid the fluid loss and electrolyte shifts.
- Wound care team contacted to obtain ostomy appliance that can be connected to a gravity bag so at least the skin will be bathing and this ascitic fluid and become overly macerated.
- Will sign off for now, please call with any questions or concerns or if patient's transfer is being delayed for any reason.
--- NOTE | 2024-01-17 12:02 | WOUNDNOTE ---
WOC RN NOTE: Patient's sacrum and heels are intact and he can turn in bed. Patient states he ambulates at home with minimal assistance. Protective foam placed on bony sacral area. This development writer called bed tech for bed. RN Yanet given update.
[2024-01-17] MEDS: ROCEPHIN 2000 MG IV (12:16)
[2024-01-17] MEDS: STERILE WATER FOR INJECTION 20 ML IV (12:17)
[2024-01-17] MEDS: FLEXBUMIN 100 IV ×2 (12:27→19:32)
--- NOTE | 2024-01-17 12:46 | W.PN.HOSP.TC ---
Today's Communication/Plan
-
tx to [facility] for surgical repair of hernia and TIPs
Ceftriaxone, albumin
Assessment / Plan
Assessment / Plan
Physical Exam
General: Well Developed, Well Nourished and No Apparent Distress
HEENT: NormoCephalic, Moist mucous membranes and Atraumatic
Respiratory: Clear; No Wheezes, Rales or Rhonchi
Cardiac: S1/S2 and Regular Rhythm; No Murmur or Rub
GI: Soft, Non Tender, Normal Bowel Sounds and Other (Mild distention. Umbilical Hernia with small ulceration and leakage of ascitic yellow fluid. No purulence. No TTP. )
Rectal: Deferred by Provider
Musculoskeletal: No Clubbing, No Cyanosis and No Edema
Skin: No Rash
Neuro: Awake, Alert, AO x 3, No Motor Deficits and Nonfocal/grossly intact
Hematologic/Lymphatic: No Lymphadenopathy
Psych: Calm
Ascites
Rupture of umbilical hernia with drainage of ascitic fluid
-Surgery consulted - f/u [facility] for further surgical repair
-Plan for TIPS at [facility]
-Not enough adequate ascitic fluid
-Proph ceftriaxone, albumin
-no evidence of SBP
Hyponatremia
- Na 132.
-2/2 to ascites
-ctm
Mckeon Cirrhosis
- Hx noted. Following with Dr. Baeza and Dr. Mosley for TIPS
- Continue home lasix/aldactone regimen
-f/u at [facility]
Hx SBP
- Continue home prophylactic cipro dose.
DM2 - BG 200s on admission. Continue home farxiga. SSI/accuchecks. Diabetic diet when advanced. hb1ac - 7.7 - f/u outpatient
HTN/HLD - Continue home lasix/aldactone/statin.
GERD - Continue home PPI
Anemia/Thrombocytopenia - Hgb 10.9 g/dL. MCV 82. PLT 74K. Relatively chronic, above tranfusion thresholds. Follow for stability.
DVT Ppx: Lovenox
Code Status: Full Code
More than 30 minutes spent in discharge including
Final examination of the patient
Summarizing hospital stay
Instructions for continuing care to all relevant caregivers
Preparation of discharge records, prescriptions, and referral forms
Total time spent (35 in minutes):
Anticipated Discharge: Today
Subjective/Interval History
-
Date of Service: January 17, 2024
gi eval - pending tx to [place] for TIPS and hernia repair
Objective Data
-
Labs:
Laboratory Results
01/16/24 01/17/24
23:52 05:07
WBC 4.6 L
Hgb 10.9 L
Hct 31.8 L
Plt Count 74 L 73 L
PT 16.2 H
INR 1.32
APTT 31.5
Sodium 131 L
Potassium 4.3
Chloride 106
Carbon Dioxide 22
BUN 17
Creatinine 0.7
Glucose 189 H
Calcium 8.7
Total Bilirubin 0.9
AST 47
ALT 49
Alkaline Phosphatase 68
Vital Signs:
Vital Signs
Temp Pulse Resp BP Pulse Ox
98.4 F 69 13 136/57 98
01/17/24 05:19 01/17/24 12:15 01/17/24 12:15 01/17/24 11:00 01/17/24 12:15
Review of Systems
-
History Source: Patient
All other systems: Reviewed and negative
Data Reviewed
-
CT Scan: Image personally visualized and interpreted and Report Reviewed by me
Labs: Labs Reviewed by me
--- NOTE | 2024-01-17 12:54 | W.DS.TRANS ---
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
-
Discharge Instructions:
Instructions:
Stand-Alone Forms:
Changes to Home Medications: No
Discharge Medications:
DC Medications w/original date entered in [employer]
lansoprazole 30 mg capsule,delayed release 30 mg PO DAILY Gastrointestinal Issue 11/27/15
atorvastatin 40 mg tablet 40 mg PO QPM High Cholesterol 09/09/23
dapagliflozin propanediol 10 mg tablet (Farxiga) 10 mg PO DAILY diabetes 09/09/23
furosemide 40 mg tablet 40 mg PO DAILY Fluid Retention/Swelling 09/09/23
ciprofloxacin HCl 500 mg tablet 500 mg PO DAILY 01/16/24
spironolactone 50 mg tablet 150 mg PO DAILY 01/16/24
Home Medication Changes
Pending Results: No
[2024-01-17 13:11] LABS: Glucose - Point of Care 123 mg/dl (70-99)
--- NOTE | 2024-01-17 13:32 | CM ---
CM reviewed medical records. Plan for transfer to [facility] for TIPS procedure. CM will continue to follow as needed.
[2024-01-17 17:23] LABS: Glucose - Point of Care 123 mg/dl (70-99)
[2024-01-17] MEDS: LOVENOX 40 MG SC (19:33)
[2024-01-17] MEDS: LIPITOR 40 MG PO (19:34)
[2024-01-18] MEDS: FLEXBUMIN 100 IV (03:20)
[2024-01-18 06:48] LABS: Hemoglobin 10.5 g/dL (13.0-18.0); Mean Corp Hgb Conc. 33.9 g/dL (33.0-37.0); Mean Corpuscular Hgb 27.8 pg (27.0-31.0); Mean Platelet Volume 12.2 fL (7.4-10.4); Platelet Count 64 10^3/uL (130-400); Red Blood Cell Count 3.78 10^6/uL (4.70-6.10); Red Cell Dist. Width 15.7 % (11.5-14.5); White Blood Cell Count 3.5 10^3/uL (4.8-10.8)
[2024-01-18 07:31] VITALS: BP 135/59
[2024-01-18] MEDS: FARXIGA 10 MG PO (07:33)
[2024-01-18] MEDS: LASIX 40 MG PO (07:33)
[2024-01-18] MEDS: ALDACTONE 150 MG PO (07:33)
[2024-01-18] MEDS: PREVACID 30 MG PO (07:33)
[2024-01-18 07:58] VITALS: BMI 24.1
[2024-01-18 08:01] LABS: ALT (SGPT) 37 U/L (0-50); AST (SGOT) 40 U/L (17-59); Albumin 4.1 g/dl (3.5-5.0); Alkaline Phosphatase 52 U/L (38-126); Blood Urea Nitrogen 17 mg/dl (9-20); Calcium 8.9 mg/dl (8.4-10.2); Carbon Dioxide 24 mmol/L (22-30); Chloride 103 mmol/L (98-107); Estimated Creatinine Clearance 117 ml/min; Glucose 129 mg/dl (70-99); Potassium 3.7 mmol/L (3.5-5.1); Sodium 133 mmol/L (135-145); Total Bilirubin 1.7 mg/dl (0.2-1.3); Total Protein 7.1 g/dl (6.3-8.2); eGFR > 60.00
[2024-01-18 08:40] LABS: Glucose - Point of Care 162 mg/dl (70-99)
--- NOTE | 2024-01-18 11:02 | W.PN.HOSP.TC ---
Addendum entered and electronically signed by Axel Singer MD 01/19/24 17:55:
[id number]
Original Note:
Today's Communication/Plan
-
tx to [place] for TIPS, hernia repair
Assessment / Plan
Assessment / Plan
Physical Exam
General: Well Developed, Well Nourished and No Apparent Distress
HEENT: NormoCephalic, Moist mucous membranes and Atraumatic
Respiratory: Clear; No Wheezes, Rales or Rhonchi
Cardiac: S1/S2 and Regular Rhythm; No Murmur or Rub
GI: Soft, Non Tender, Normal Bowel Sounds and Other (Mild distention. Umbilical Hernia with small ulceration and leakage of ascitic yellow fluid. No purulence. No TTP. )
Rectal: Deferred by Provider
Musculoskeletal: No Clubbing, No Cyanosis and No Edema
Skin: No Rash
Neuro: Awake, Alert, AO x 3, No Motor Deficits and Nonfocal/grossly intact
Hematologic/Lymphatic: No Lymphadenopathy
Psych: Calm
Ascites
Rupture of umbilical hernia with drainage of ascitic fluid
-Surgery consulted - f/u [facility] for further surgical repair
-Plan for TIPS at [facility]
-Not enough adequate ascitic fluid
-Proph ceftriaxone, albumin
-no evidence of SBP
Hyponatremia
- Na 132.
-2/2 to ascites
-ctm
Mckeon Cirrhosis
- Hx noted. Following with Dr. Baeza and Dr. Mosley for TIPS
- Continue home lasix/aldactone regimen
-f/u at [facility]
Hx SBP
- Continue home prophylactic cipro dose.
DM2 - BG 200s on admission. Continue home farxiga. SSI/accuchecks. Diabetic diet when advanced. hb1ac - 7.7 - f/u outpatient
HTN/HLD - Continue home lasix/aldactone/statin.
GERD - Continue home PPI
Anemia/Thrombocytopenia - Hgb 10.9 g/dL. MCV 82. PLT 74K. Relatively chronic, above tranfusion thresholds. Follow for stability.
DVT Ppx: Lovenox
Code Status: Full Code
More than 30 minutes spent in discharge including
Final examination of the patient
Summarizing hospital stay
Instructions for continuing care to all relevant caregivers
Preparation of discharge records, prescriptions, and referral forms
Total time spent (36 in minutes):
Anticipated Discharge: Today
Subjective/Interval History
-
Date of Service: January 18, 2024
steady ascitic output into ostomy
Objective Data
-
Labs:
Laboratory Results
01/18/24
06:38
WBC 3.5 L
Hgb 10.5 L
Hct 31.0 L
Plt Count 64 L
Sodium 133 L
Potassium 3.7
Chloride 103
Carbon Dioxide 24
BUN 17
Creatinine 0.6 L
Glucose 129 H
Calcium 8.9
Total Bilirubin 1.7 H
AST 40
ALT 37
Alkaline Phosphatase 52
Vital Signs:
Vital Signs
Temp Pulse Resp BP Pulse Ox
97.7 F 65 16 135/59 97
01/18/24 07:31 01/18/24 07:31 01/18/24 07:31 01/18/24 07:31 01/18/24 07:31
I&O
01/17/24 01/18/24 01/19/24
06:59 06:59 06:59
Intake Total 600 / 600
Output Total 250 / 250
Balance 350 / 350
Review of Systems
-
History Source: Patient
All other systems: Reviewed and negative
Data Reviewed
-
CT Scan: Image personally visualized and interpreted and Report Reviewed by me
Labs: Labs Reviewed by me
[2024-01-18] MEDS: ROCEPHIN 2000 MG IV (11:29)
[2024-01-18] MEDS: STERILE WATER FOR INJECTION 20 ML IV (11:29)
[2024-01-18 11:48] LABS: Glucose - Point of Care 173 mg/dl (70-99)
[2024-01-18 15:08] VITALS: BP 139/68
[2024-01-18 16:40] LABS: Glucose - Point of Care 197 mg/dl (70-99)
[2024-01-18] MEDS: LOVENOX 40 MG SC (17:32)
[2024-01-18] MEDS: LIPITOR 40 MG PO (17:32)
== END 2024-01-18 18:47 | disposition short-term general hospital (02) | DRG 394 ==
LOC: 3 WEST ACU 02:52
PROVIDERS: ADMITTING PHYSICIAN Internal Medicine; ATTENDING PHYSICIAN Internal Medicine; CONSULT PHYSICIAN Internal Medicine Gastroenterology; CONSULT PHYSICIAN Surgery; EMERGENCY PHYSICIAN Emergency Medicine; FAMILY PHYSICIAN Family Medicine
DX: K42.9 Umbilical hernia without obstruction or gangrene (principal); E87.1 Hypo-osmolality and hyponatremia; R18.8 Other ascites; K75.81 Nonalcoholic steatohepatitis (NASH); E11.9 Type 2 diabetes mellitus without complications; I10 Essential (primary) hypertension; E78.00 Pure hypercholesterolemia, unspecified; K21.9 Gastro-esophageal reflux disease without esophagitis; D64.9 Anemia, unspecified; D69.6 Thrombocytopenia, unspecified; Z79.84 Long term (current) use of oral hypoglycemic drugs
CPT/HCPCS: 74177; 80048; 80053; 80076; 82962; 83036; 83605; 83735; 85025; 85027; 85610; 85730; 87040; 87070; 93005; 96365; 99285; P9047; Q9967

== ENCOUNTER 2024-10-18 06:18 | Day surgery (SDC) | payer OTHER, SELFPAY ==
[2024-10-18 08:28] LABS: Glucose - Point of Care 119 mg/dl (70-99)
== END 2024-10-18 10:18 | disposition home or self-care (01) ==
LOC: GI 06:18
PROVIDERS: ATTENDING PHYSICIAN Internal Medicine Gastroenterology; FAMILY PHYSICIAN Family Medicine
DX: Z12.11 Encounter for screening for malignant neoplasm of colon (principal); K64.8 Other hemorrhoids; K63.5 Polyp of colon; K57.30 Diverticulosis of large intestine without perforation or abscess without bleeding; D50.9 Iron deficiency anemia, unspecified; K44.9 Diaphragmatic hernia without obstruction or gangrene; K31.819 Angiodysplasia of stomach and duodenum without bleeding; K31.7 Polyp of stomach and duodenum; I85.00 Esophageal varices without bleeding; Z80.0 Family history of malignant neoplasm of digestive organs; Z86.0100 Personal history of colon polyps, unspecified
CPT/HCPCS: 45380; 43235; 88305; 82962

== ENCOUNTER 2024-11-28 09:58 | Emergency (ER) | payer OTHER, SELFPAY ==
[2024-11-28 10:22] VITALS: BP 159/66
[2024-11-28 11:03] VITALS: BMI 26.2
[2024-11-28 11:09] VITALS: BP 144/54
--- NOTE | 2024-11-28 11:25 | EDRN ---
Susana VALENZUELA in to see pt.
--- NOTE | 2024-11-28 11:28 | ED.GENMED ---
History of Present Illness
General
Chief Complaint: Fall
Source: patient
Exam Limitations: none
Time Seen by Provider: 11/28/24 10:59
Nursing documentation reviewed up to this point in time: agreed with
History of Present Illness
History of Present Illness:
PT IS A 69 Y/O M
with h/o cirrhosis, secondary to MENDEZ, s/p TIPS
chronically low plt and hg
last week plt 80k
here with L headache, contusion, abrasion after mechanical fall
pt was standing with his leg up on a plastic bin in the garage and fell when the bin slipped from under his foot and he landed on his L knee, L shoulder and scraped his L scalp on something ,he isn't sure what
he had no loc but felt dazed
hs pain an dswelling and abrasion to L scalp
mild headache
no confusion, weakness, neck pain, numbness/tingling, vomiting
had some L shoulder pain that resolved
has a scrape on his L knee
teatnus about 10 years old
Past History
Past History
ED Past Medical History: GERD, HTN, Hypercholesterolemia and Other (Cirrhosis of the liver)
ED Past Surgical History: Orthopedic and Other (Hernia repair)
Social History
Personal:
Living: with family
Employment: Employed
Family History
Family History: Other
Review of Systems
Review of Systems
Allergies reviewed?: Yes
All Other Systems: Not applicable
Phy Exam
Physical Exam
Physical Exam:
GENERAL: Alert , in no apparent distress
HEAD: irregular scalp skin avulsion, approx 4 x 1 cm with hematoma tenderness
appears to have the skin and hair avulsed in that L temporal region
oozing but no active bleeding
no obvious laceration to sew
NECK: no midline tenderness, active ROM intact, no paraspinal muscle tenderness;
EYE: pupils equal and reactive, EOMs intact.
ENT: o/p clr, mmm. no hemotympanum
CARDIAC: Regular rate and rhythm, no edema
LUNGS: Clear breath sounds bilaterally, no acute respiratory distress, no wheezes/rales/rhonchi
ABDOMEN: Soft, without focal tenderness, no r/g, no cvat
NEUROLOGICAL: Alert and oriented, no focal neuro deficits, CN intact, 5/5 strength, sensation intact
SKIN: Warm and dry, avulsion as above
L knee abrasion
MUSCULOSKELETAL: No edema, well perfused.
L shoulder nonender, full rom
L knee full ROM
hips nontender
PSYCH: Normal and appropriate interaction.
Course
Orders/Labs/Results
Orders:
Orders
11/28/24 11:25
CT Cervical Spine W/o Iv Contr Urgent
Comment:
Reason For Exam: FELL HIT HEAD
Acetaminophen [Tylenol] 650 mg PO NOW STA
Tetanus/Diphth/Acelpertussis [Adacel] 0.5 ml IM .ONCE ONE
11/28/24 11:26
CT Head W/o Iv Contrast Urgent
Comment:
Reason For Exam: FELL HIT HEAD, CONTUSION
11/28/24 12:13
Complete Blood Count/With Diff Urgent
PTT Urgent
Prothrombin Time Urgent
Abnormal Lab Results
11/28/24
12:13
WBC 4.1 L 10^3/uL
(4.8-10.8)
RBC 4.11 L 10^6/uL
(4.70-6.10)
Hgb 12.1 L g/dL
(13.0-18.0)
Hct 34.8 L %
(39.0-52.0)
RDW 15.6 H %
(11.5-14.5)
Plt Count 84 L 10^3/uL
(130-400)
MPV 11.5 H fL
(7.4-10.4)
Absolute Lymphs (auto) 0.7 L 10^3/uL
(1.2-3.4)
Lymphocytes % 15.9 L %
(20.5-51.1)
Monocytes % 11.8 H %
(1.7-9.3)
PT 16.0 H Sec
(11.4-14.6)
11/28/24 12:13
Vital Signs
Initial and Last Documented VS:
Initial Vital Signs
Temp Pulse Resp BP Pulse Ox
36.9 C 73 16 159/66 99
11/28/24 10:22 11/28/24 10:22 11/28/24 10:22 11/28/24 10:22 11/28/24 10:22
Last Documented Vital Signs
Temp Pulse Resp BP Pulse Ox
36.9 C 70 16 144/54 100
11/28/24 10:22 11/28/24 11:09 11/28/24 11:09 11/28/24 11:09 11/28/24 11:09
MDM/Problems Addressed
Differential Diagnosis Includes:
minor head injury, scalp abrasion/avulsion, concussion, fall, contusion
MDM/Problems Addressed:
69 y/o M
fell from standing
hit head
no LOC
no AC
history of cirrhosis and plt is usually 80s
on exam pt has hematoma and skin/scalp abrasion/avulsion in hair
no neck tenderness
nv intact
no other significant traumatic injuries
head/neck ct neg
tettanus updated
wound irrigated, no laceration to repair
compressive dressing applied
return precautions
*Critical Care Note
Total Time (30-74mins, 75-104mins- exclusive of procedures): Not Applicable
ED Attending Note
-
Portions of this chart may have been created with voice recognition software.� Occasional wrong word or��sound alike� substitutions may have occurred due to the inherent limitations of voice recognition software.
Discharge Plan
Departure
Patient Disposition: Home (Routine Discharge)
Date of Disposition: 11/28/24
Time of Disposition: 13:03
Patient with high blood pressure during this ER visit?: Yes
Condition: Fair
Covid-19: Not Applicable
Discharge Problem:
Hematoma, Abrasion of scalp, Minor closed head injury
Instructions: Wound Care (DC), Head injury in adults
Prescriptions:
No Action
lansoprazole 30 MG capsule,delayed release(DR/EC)
30 mg PO DAILY
furosemide 40 mg tablet
40 mg PO DAILY
atorvastatin 40 mg tablet
40 mg PO QPM
dapagliflozin propanediol [Farxiga] 10 mg tablet
10 mg PO DAILY
ciprofloxacin HCl 500 mg tablet
500 mg PO DAILY
spironolactone 50 mg tablet
150 mg PO DAILY
Referrals:
Camille Cheng MD [Family Provider] - Follow up in 2-3 days
Activity Restrictions/Additional Instructions:
YOUR CAT SCAN OF YOUR HEAD/NECK WAS NEGATIVE FOR TRAUMA
YOU PROBABLY BRUISED YOUR HEAD, YOU HAVE A SCALP ABRASION WELL A MINOR HEAD INJURY
YOU MAY DEVELOP MORE CONCUSSIVE SYMPTOMS; YOU CAN TRY PRACTICING BRAIN REST FOR 24-48 HOURS LIMITING TV, PHONE, COMPUTER ETC
TYLENONL FOR PAIN NEEDED
ICE OFF AND ON
YOU CAN LEAVE THE DRESSING ON FOR 1-2 DAYS
AVOID GETTING YOUR HAIR WET FOR 2 DAYS
THE WOUND COULD OOZE SOME
APPLY OINTMENT UNTIL HEALED
RETURN FOR: SUDDEN SEVERE WORST HEADACHE OF LIFE, PASSING OUT, VOMITING, CONFUSION ETC.
Interventions
Interventions:
*Risk Screen - Suicide Last Done: 11/28/24 13:51
*General Assessment Last Done: 11/28/24 11:03
*Neglect/Abuse Screening Last Done: 11/28/24 13:51
*ED- Fall Risk Assessment Last Done: 11/28/24 11:03
*ED COVID-19 Vaccine History Last Done: 11/28/24 11:03
*Nursing Disposition Last Done: 11/28/24 13:51
ED-Musculoskeletal Assessment Last Done: 11/28/24 11:05
ED- Neurological Assessment Last Done: 11/28/24 11:05
ED-Skin Assessment Last Done: 11/28/24 11:05
Discharge Date and Time
Discharge Date/Time: 11/28/24 13:52
Print Language: IRANIAN
[2024-11-28] MEDS: TYLENOL 650 MG PO (12:17)
[2024-11-28 12:30] LABS: % Eosinophils 2.2 % (0-6); % Lymphocytes 15.9 % (20.5-51.1); % Monocytes 11.8 % (1.7-9.3); % Neutrophils 69.1 % (42.2-75.2); Absolute Eosinophils 0.1 10^3/uL (0-0.7); Absolute Lymphocytes 0.7 10^3/uL (1.2-3.4); Absolute Monocytes 0.5 10^3/uL (0.1-0.6); Absolute Neutrophils 2.9 10^3/uL (1.4-6.5); Hematocrit 34.8 % (39.0-52.0); Hemoglobin 12.1 g/dL (13.0-18.0); Mean Corp Hgb Conc. 34.8 g/dL (33.0-37.0); Mean Corpuscular Hgb 29.4 pg (27.0-31.0); Mean Corpuscular Volume 84.7 fL (80.0-94.0); Mean Platelet Volume 11.5 fL (7.4-10.4); Nucleated Red Blood Cells % 0 % (-); Platelet Count 84 10^3/uL (130-400); Red Blood Cell Count 4.11 10^6/uL (4.70-6.10); Red Cell Dist. Width 15.6 % (11.5-14.5); White Blood Cell Count 4.1 10^3/uL (4.8-10.8)
[2024-11-28 12:33] LABS: INR 1.23
[2024-11-28 12:34] LABS: APTT 31.2 Sec (23.4-35.0)
[2024-11-28] MEDS: ADACEL 0.5 ML IM (12:34)
--- NOTE | 2024-11-28 12:45 | EDRN ---
Wound on head cleansed extensively w/H2O2 and saline at this time w/ double antibiotic ointment to area.
--- NOTE | 2024-11-28 13:51 | EDRN ---
Head dressed w/ mendez
== END 2024-11-28 13:52 | disposition home or self-care (01) ==
LOC: EMR 09:58
PROVIDERS: Physician Assistant; EMERGENCY PHYSICIAN Student in an Organized Health Care Education/Training Program; FAMILY PHYSICIAN Family Medicine
DX: S00.01XA Abrasion of scalp, initial encounter (principal); W01.0XXA Fall on same level from slipping, tripping and stumbling without subsequent striking against object, initial encounter; Z23 Encounter for immunization; K75.81 Nonalcoholic steatohepatitis (NASH); E78.00 Pure hypercholesterolemia, unspecified; I10 Essential (primary) hypertension; R51.9 Headache, unspecified; K21.9 Gastro-esophageal reflux disease without esophagitis
CPT/HCPCS: 99284; 90471; 70450; 72125; 85025; 85610; 85730; 90715